=== PATIENT | male | born 1970 | race Caucasian/White ===

== ENCOUNTER 2021-04-23 00:12 | Inpatient (IN) | payer OTHER, SELFPAY ==
[2021-04-23] VITALS (16 sets, daily range): BP systolic 131–149; BP diastolic 79–91; PULSE 97–109; RESP 18–24; TEMP 37.2–37.8; O2SAT 85–99; BMI 35.4
--- NOTE | 2021-04-23 02:58 | PCM.HP.STD ---
HPI - General General Date of Admission: 04/23/21 Date of Service: 04/23/21 Chief Complaint: COVID PNA, Hypoxia, worsening. HPI Narrative The patient is a 50 y/o F w/ PMHx: HTN, HLD, Diabetes mellitus type II, Chronic lumbar back pain, Obesity who presented initially to the [place] ED on 04/22/21 with transfer to [facility] with history of recent travel, in fact had onset of symptoms starting ~ 6 days prior on Friday with attempt with evaluation 3 days prior in [place] with negative chest x-ray at that time and negative Covid testing with ongoing fever, chills, cough, congestion, headache, body aches as well as dyspnea but no specific nausea, vomiting or diarrhea with fever up to 103.3 at home today prompting eventual reevaluation. Patient is unvaccinated against COVID-19. He notes that his girlfriend, her mother and her son live with him but he has been out of town and they have all felt well. Patient upon arrival to [facility] had been reported to require 4 L nasal cannula via EMS. Work-up at the outside ED included: VS: Initial T 38.0, BP 118/76, HR 99, RR 20, 90% on RA-->ambulation 87% on RA-->93% on 2L NC CBC: WBC 3.5, Hgb 12.6, Plts 118 without marked shift BMP: Na 131, K 3.5, BUN/Cr 9/1.0, glucose 148 (no hepatic profile) CXR: R midlung PNA COVID type testing: Positive PCR Trop: < 0.02 EKG: Pending Medications administered: Decadron 6 mg IV x 1, 1L NS. [facility] Medical History (Updated 04/23/21 @ 03:[address] Dena Clancy MD) Chronic back pain Diabetes mellitus, type 2 HLD (hyperlipidemia) HTN (hypertension) Obesity no significant family history (Patient denies any marked maternal or paternal family history including heart disease, diabetes, cancer.) Surgical History (Updated 04/23/21 @ 03:[address] Dena Clancy MD) No history of previous surgery Social History (Updated 04/23/21 @ 03:[address] Dena Clancy MD) household members: other details: He lives with his girlfriend and her mother as well as her son. Smoking Status: Never smoker alcohol intake: never substance use type: does not use ROS ROS Narrative Admission Review of Systems: CONSTITUTIONAL: No weight loss, + fever, chills, weakness or fatigue. HEENT: + Headache, congestion, altered taste/smell. Eyes: No visual loss, blurred vision, double vision or yellow sclerae. Ears, Nose, Throat: No hearing loss, sneezing. SKIN: No rash or itching, lesions, wounds. CARDIOVASCULAR: No chest pain, chest pressure or chest discomfort, palpitations, edema, orthopnea, syncopal events. RESPIRATORY: + shortness of breath, cough, No marked sputum, wheezing, hemoptysis. GASTROINTESTINAL: + anorexia, diarrhea, No nausea, vomiting, abdominal pain, melena, BRBPR. GENITOURINARY: No dysuria, frequency, urgency or retention. NEUROLOGICAL: + headache, No dizziness, syncope, paralysis, ataxia, numbness or tingling in the extremities, focal weakness, change in bowel or bladder control, seizure. MUSCULOSKELETAL: + muscle, back pain, joint pain or stiffness. HEMATOLOGIC: No anemia, bleeding or bruising. LYMPHATICS: No enlarged nodes. No history of splenectomy. PSYCHIATRIC: No history of depression or anxiety. ENDOCRINOLOGIC: No reports of sweating, cold or heat intolerance. No polyuria or polydipsia. ALLERGIES: No history of asthma, hives, eczema or rhinitis. Physical Exam Narrative Physical Examination: General: Awake, alert, oriented x 3 and cooperative, seated upright in the MS bed, fatigued. Skin: Normal color, normal turgor, no icterus, no cyanosis. HEENT: AT/NC, EOMI, PERRLA, moderately dry MM, no carotid bruits or JVD noted. Lungs: Diffusely diminished, greater bases, increased respiratory rate, no rales, ronchi or wheezing. Heart: Regular rate with regular rhythm; no gallop, rub audible. Abdomen: Soft, obese, NTTP, NS, distant hyperactive bowel sounds, no HSM. Extremities: No cyanosis, clubbing, or edema. Neurological: Patient awake, alert, oriented as noted, cognitive function intact; pupils equally reactive to light and accommodation, cranial nerves II-XII grossly normal, moving all 4 extremities, no focal deficits, strength moderately global decrease secondary to acute presentation. Psychiatric: Affect appears fatigued, no acute evidence of depressive or anxiety feelings. Assessment & Plan Assessment/Plan (1) Pneumonia due to COVID-19 virus: (2) Hypoxia: PLAN: The patient is a 50 y/o F w/ PMHx: HTN, HLD, Diabetes mellitus type II, Chronic lumbar back pain, Obesity who presented initially to the [place] ED on 04/22/21 with transfer to [facility] with history of onset of Covid type symptoms 6 days prior, progressively worsening with hypoxia 1. Acute Hypoxia secondary to Acute R sided Pneumonia, Suspect BL secondary to Acute Viral Syndrome, COVID-19: Will admit to the [place] telemetry, maintain on COVID precautions, will maintain on oxygen with wean as tolerated to room air, PRN albuterol, HOB, IS parameters w/ pending sputum cultures, respiratory viral panel and urine antigens, will obtain D-dimer, procalcitonin, CRP, CPK, Ferritin, LDH, trop and BNP, continue supportive care including q 2 hour turning including prone given no prone bed availability and judicious hydration, closely monitor for worsening status for ARDS and multiorgan failure, will initiate and continue IV decadron x 10 doses, given presentation will also initiate IV remdesivir but defer to discretion of Infectious disease. If respiratory status worsens and patient requires airvo or BIPAP transition will initiate barcitinib regimen additionally with ID involvement. 2. Diabetes mellitus type II: Hold oral home regimen, ADA diet, accu checks w/ ISS. We will temporarily hold patient Trulicity. 3. Hypertension: Continue home regimen including hydrochlorothiazide?lisinopril, PRN hydralazine. 4. Hyperlipidemia: Not on regimen, defer to outpatient. 5. Obesity: Weight loss and lifestyle changes encouraged. 6. Chronic lumbar back pain: Encourage frequent positional changes. 7. DVT prophylaxis: SCDs, Lovenox. 8. CODE status: Patient does not have healthcare proxy turning or living will in place. Given acute presentation and unvaccinated state with Covid pneumonia with hypoxia, discussed CODE status at length including difference between FULL code, DNR-CCA and DNR-CC status. Following discussions about the differences in these status, requested Full Code status. Patient amenable to airvo and BIPAP if needed. Advanced Care Planning Face to Face Time: 16 minutes. Charges/Coding Visit Charges Inpatient E&M: 93578 Init Hosp L3 Procedures Hospitalists Procedures: 38344 Advncd Care Plan 30 Min
[2021-04-23] MEDS: 0.9% Normal Saline 1,000 ML 100 ML IV (04:04)
--- NOTE | 2021-04-23 04:33 | PCS.PANDOC ---
PANDEMIC DOCUMENTATION INITIATED: Date: 01/15/2021 Time: 1900 Emergency documentation initiated 04/22/21 @ 0400
--- NOTE | 2021-04-23 04:41 | PCS.PANDOC ---
PANDEMIC DOCUMENTATION INITIATED: Date: 01/15/2021 Time: 190
[2021-04-23] MEDS: Insulin Lispro 100 UNIT/ML INSULN.PEN SC ×3 (06:25→21:42)
[2021-04-23 06:56] LABS: Bedside Glucose 207 mg/dL (70-110)
[2021-04-23 07:04] LABS: Absolute Lymphocyte Count 0.42 X10^3/uL (0.83-4.51); Absolute Neutrophil Count 2.5 X10^3/uL (2.0-7.7); Hematocrit 39.4 % (40-54); Lymphocyte # 0.42 X10^3/ul (0.83-4.51); Lymphocyte % 13.8 % (19-41); Mean Corpuscular Hgb 26.9 pg (27.0-32.0); Mean Corpuscular Volume 81.6 fL (80-94); Monocyte% 3.3 % (0-10); NRBC Flagged by Analyzer 0 % (0-5); Neutrophil # 2.52 X10^3/uL (2.7-7.7); Neutrophil % 82.6 % (47-70); POSITIVE DIFFERENTIAL YES; Platelet Count 130 K/mm3 (150-450); RBC Distribution Width CV 13.1 % (11.6-14.6); Red Blood Count 4.83 M/mm3 (4.6-6.2); White Blood Count 3.1 K/mm3 (4.4-11.0)
[2021-04-23 07:16] LABS: Differential Indicated SCAN CRITERIA MET
[2021-04-23 07:35] LABS: ALB/GLOB Ratio 0.7 RATIO (0.9-2.4); AST(SGOT) 37 U/L (15-37); Alanine Aminotransfer ALT/SGPT 41 U/L (16-61); Albumin, Serum 2.8 g/dL (3.2-5.0); Alkaline Phosphatase 37 U/L (45-117); Anion Gap 7 (5-15); BUN 9 mg/dL (7-18); BUN/Creat Ratio 9.9 RATIO (10-20); Chloride 98 mmol/L (98-107); Creatinine, Serum 0.91 mg/dL (0.70-1.30); EST Glomerular Filtration Rate 93 mL/min (>60); Est Glom Filt Rate - Afr Amer 113 mL/min (>60); Estimated Creatinine Clearance 106.59 ml/min; Globulin 3.8 g/dL (2.2-4.2); Glucose 229 mg/dL (74-106); Protein, Total 6.6 g/dL (6.4-8.2); Sodium Level 131 mmol/L (136-145)
[2021-04-23 07:37] LABS: AST(SGOT) 38 U/L (15-37); Alanine Aminotransfer ALT/SGPT 41 U/L (16-61); Albumin, Serum 2.9 g/dL (3.2-5.0); Alkaline Phosphatase 35 U/L (45-117); Bilirubin, Direct 0.14 mg/dL (0.00-0.30); Ferritin 1206 ng/mL (26-388); Globulin 3.3 g/dL (2.2-4.2); LDH 337 U/L (87-241); Protein, Total 6.2 g/dL (6.4-8.2)
[2021-04-23 07:42] LABS: D-Dimer Quantitative (DVT/PE) 0.72 FEU/ug/m (0.27-0.49)
[2021-04-23] MEDS: 0.9% Saline Lock 10 ML Syringe IV ×2 (08:41→11:44)
[2021-04-23] MEDS: Enoxaparin 30 MG/0.3 ML Syringe SC ×2 (08:41→21:43)
[2021-04-23 09:04] LABS: BNP,B-Type NATRIURETIC PEPTIDE 35.8 pg/mL (0-100)
[2021-04-23 10:04] LABS: Procalcitonin 0.16 ng/mL (0.00-0.09)
--- NOTE | 2021-04-23 10:48 | CASEMGMT ---
ULICES RODRIGES Assessment: Face to Face with pt for initial transition planning/care coordination assessment. ULICES RODRIGES introduced self and role at [facility], pt voices understanding and consents to assessment. Pt is A/O x4 and answers all questions appropriately at this time. Pt sitting up in chair with O2 on in no distress. Care providers, pharmacy, and demographics verified/updated. Admitting Dx: COVID PNA, hypoxia PCP:[place] Specialists: Pt denies having any specialists. Preferred Pharmacy: [facility] Insurance: [employer] Prescription Benefit: yes LW/HPOA: Pt denies having a LW/DPOA and denies need for info regarding AD. LNOK: Selin Vo, girlfriend Living Arrangements: Pt lives with his girlfriend in a single story house with 3 steps to enter. Pt reports he was I in ADL's and denies concerns at home. Transportation: Pt drives self and denies concerns with transportation. DME/HHC/SNF: Pt has a pulse ox at home. Denies hx of HHC or SNF stays. Pt was tested for COVID at [facility]. Pt is able to quarantine from his girlfriend using separate bedrooms and bathrooms. She is not COVID positive. Pt girlfriend will be able to provide him with groceries and supplies. Provided pt with a list of local in network DME companies should he need O2 upon dc, pt denies having a preference. Pt states no concerns with going home at time of dc. Pt states no further concerns/needs. CM to follow. Advised pt to ask CM if any further question/concerns/needs arise, voices understanding. Pt Goal: Home Plan: Home
--- NOTE | 2021-04-23 11:13 | PN_ITS ---
Assessment & Plan Assessment/Plan (1) Pneumonia due to COVID-19 virus: (2) Hypoxia: PLAN: 1. Acute hypoxic respiratory failure secondary to COVID-19 pneumonia ?We'll continue to monitor oxygen status, he is currently up to 8 L nasal cannula. If he does worsen we'll need to consult ID for baricitinib ?Continue with remdesivir and Decadron we'll transition this to p.o. ?Discontinue IV fluids and may need to transition to Lasix if respiratory status significantly worsens and he has physical exam findings consistent with fluid overload ?Outpatient evaluation at outside hospitals initially were negative for any lung findings. ?D-dimer is elevated at 0.72, renal function is stable therefore will obtain a CTA of the chest 2. DM2 ?Hold home regimen ?Continue with sliding scale insulin ?Accu-Cheks AC at bedtime, will make adjustments as necessary 3. HTN/HLD/obesity ?Blood pressure is stable, will continue to monitor ?Continue with his home blood pressure medications and monitor renal function ?He is not on any medications for his cholesterol but should likely have follow- up as an outpatient ?BMI of 35.4, discussed lifestyle modifications DVT: Lovenox
[2021-04-23] MEDS: guaiFENesin 10 ML UDC (200MG/10ML) 20 ML PO (11:45)
--- NOTE | 2021-04-23 12:35 | CT_ITS ---
STUDY: CTA CHEST REASON FOR EXAM: Male, 50 years old. COVID with elevated DDimer RADIATION DOSAGE (If Supplied By Facility): CTDIvol = ( 24.54 ) mGy, DLP = ( 897.84 ) mGycm TECHNIQUE: The examination was performed with the intravenous administration of IV 100mL Isovue-370. Post-processing of the angiographic images was performed, with multiplanar reformation and 3D reconstruction. Individualized dose optimization techniques were used for this CT. COMPARISON: None. FINDINGS: Normal enhancement of the main pulmonary artery and right and left pulmonary arteries. Normal enhancement of the bilateral peripheral pulmonary arteries. There is no demonstrated pulmonary embolism. Normal thoracic aorta and visualized great vessels. There is no demonstrated aortic dissection. Normal heart and pericardium. Normal mediastinum. Normal hilar regions. Normal visualized trachea and bronchi. The lungs are well expanded. Multifocal airspace disease and groundglass opacities with features commonly reported with COVID pneumonia. Normal pleura. Normal chest wall structures. There are degenerative changes of thoracic spine. Hepatic steatosis. CT/CTA Chest W/WO Contrast IMPRESSION: 1. No central or segmental pulmonary embolism. 2. Multifocal infiltrates with features commonly reported with COVID pneumonia. Electronically Signed: Ben Luna MD ([place]) at 13:23 EST , Service support ,
[2021-04-23 12:55] LABS: Bedside Glucose 184 mg/dL (70-110)
[2021-04-23 16:55] LABS: Bedside Glucose 127 mg/dL (70-110)
[2021-04-23 22:01] LABS: Bedside Glucose 160 mg/dL (70-110)
[2021-04-24] VITALS (12 sets, daily range): BP systolic 130–153; BP diastolic 80–88; PULSE 90–108; RESP 18–20; TEMP 36.7–37.8; O2SAT 88–94
--- NOTE | 2021-04-24 05:28 | NURSING ---
With activity pt pulse ox drops to 86% with 9l nc. He does recover with some time
[2021-04-24 06:13] LABS: Absolute Lymphocyte Count 0.82 X10^3/uL (0.83-4.51); Absolute Neutrophil Count 4.6 X10^3/uL (2.0-7.7); Basophil# 0.01 X10^3/uL; Basophil% 0.2 % (0-1); Hematocrit 40.9 % (40-54); Hemoglobin 13.7 g/dL (13.0-16.5); Lymphocyte # 0.82 X10^3/ul (0.83-4.51); Lymphocyte % 14.2 % (19-41); Mean Corp Hgb Conc 33.5 g/dL (32-36); Mean Corpuscular Hgb 27.3 pg (27.0-32.0); Mean Corpuscular Volume 81.6 fL (80-94); Mean Platelet Vol. 10.6 fl (6.2-12.0); Monocyte# 0.33 X10^3/uL; Monocyte% 5.7 % (0-10); NRBC Flagged by Analyzer 0 % (0-5); Neutrophil % 79.6 % (47-70); Platelet Count 170 K/mm3 (150-450); RBC Distribution Width CV 13.4 % (11.6-14.6); Red Blood Count 5.01 M/mm3 (4.6-6.2); White Blood Count 5.8 K/mm3 (4.4-11.0)
[2021-04-24] MEDS: Insulin Lispro 100 UNIT/ML INSULN.PEN SC ×4 (06:31→21:25)
[2021-04-24 06:49] LABS: ALB/GLOB Ratio 0.7 RATIO (0.9-2.4); AST(SGOT) 49 U/L (15-37); Alanine Aminotransfer ALT/SGPT 49 U/L (16-61); Alkaline Phosphatase 41 U/L (45-117); Anion Gap 7 (5-15); BUN 11 mg/dL (7-18); BUN/Creat Ratio 12.4 RATIO (10-20); Calcium,Total 8.4 mg/dL (8.5-10.1); Chloride 94 mmol/L (98-107); Creatinine, Serum 0.88 mg/dL (0.70-1.30); EST Glomerular Filtration Rate 97 mL/min (>60); Est Glom Filt Rate - Afr Amer 117 mL/min (>60); Estimated Creatinine Clearance 110.23 ml/min; Globulin 4.3 g/dL (2.2-4.2); Glucose 173 mg/dL (74-106); Potassium 4.1 mmol/L (3.5-5.1); Protein, Total 7.3 g/dL (6.4-8.2); Sodium Level 130 mmol/L (136-145)
[2021-04-24] MEDS: dexAMETHasone 4 MG Tablet 6 MG PO (10:31)
[2021-04-24] MEDS: Enoxaparin 30 MG/0.3 ML Syringe SC ×2 (10:31→21:32)
[2021-04-24 11:51] LABS: Bedside Glucose 176 mg/dL (70-110)
[2021-04-24] MEDS: Calcium Carbonate 500 MG Tablet 1000 MG PO ×2 (12:34→21:31)
[2021-04-24] MEDS: Acetaminophen 325 MG Tablet 650 MG PO (12:34)
--- NOTE | 2021-04-24 12:49 | PN.HOSP_ITS ---
Subjective Subjective Doing well, no issues overnight. Maintaining oxygen saturations on 8 to 9 L nasal cannula. Continue to encourage incentive spirometry and Pep therapy. Objective Data Objective Data Vital Signs: Vital Signs Temp Pulse Resp BP Pulse Ox 100.1 F H 95 20 H 130/83 H 92 04/24/21 12:38 04/24/21 12:38 04/24/21 12:38 04/24/21 12:38 04/24/21 12:38 Oxygen Flow Rate (L/min) [At 8 REST with Oxygen] Oxygen Flow Rate (L/min) [ 8 AMBULATING with Oxygen #2] Oxygen Flow Rate (L/min) [ 6 AMBULATING with Oxygen #1] Oxygen Flow Rate (L/min) 9 Oxygen Delivery Method Nasal Cannula Weight: 258 lb 2.581 oz Body Mass Index (BMI) 35.4 Intake & Output: Intake and Output for Last 24 Hours 04/23/21 04/24/21 04/25/21 03:59 03:59 03:59 Intake Total 523.34 / 523.34 440 / 440 Output Total 975 / 975 550 / 550 Balance -451.66 / -451.66 -110 / -110 Lab / Micro Data Result Diagrams: 04/24/21 05:40 04/24/21 05:40 Labs: Laboratory Results - last 24 hr 04/23/21 11:34: POC Glucose 184 H 04/23/21 16:32: POC Glucose 127 H 04/23/21 21:40: POC Glucose 160 H 04/24/21 05:40: WBC 5.8, RBC 5.01, Hgb 13.7, Hct 40.9, MCV 81.6, MCH 27.3, MCHC 33.5, RDW Std Deviation 40.0, RDW Coeff of Julián 13.4, Plt Count 170, MPV 10.6, Immature Gran % (Auto) 0.300, Neut % (Auto) 79.6 H, Lymph % (Auto) 14.2 L, [place] % (Auto) 5.7, Eos % (Auto) 0.0, Baso % (Auto) 0.2, Absolute Neuts (auto) 4.6, Absolute Lymphs (auto) 0.82 L, Nucleated RBC % 0 04/24/21 05:40: Sodium 130 L, Potassium 4.1, Chloride 94 L, Carbon Dioxide 29.0, Anion Gap 7, BUN 11, Creatinine 0.88, Estim Creat Clear Calc 110.23, Est GFR (MDRD) Af Amer 117, Est GFR (MDRD) Non-Af 97, BUN/Creatinine Ratio 12.4, Glucose 173 H, Calcium 8.4 L, Total Bilirubin 0.40, AST 49 H, ALT 49, Alkaline Phosphatase 41 L, Total Protein 7.3, Albumin 3.0 L, Globulin 4.3 H, Albumin/Globulin Ratio 0.7 L 04/24/21 06:30: POC Glucose 176 H Micro: Microbiology 04/23/21 06:20 Urine, Random Legionella Antigen - Final 04/23/21 06:20 Urine, Random Streptococcus pneumoniae Antigen (M - Final 04/23/21 03:33 Mucosa - Nasopharyngeal Respiratory Panel (PCR) - Final Radiography Diagnostic Testing: Radiology Impression Chest CTA 04/23/21 12:35 IMPRESSION: 1. No central or segmental pulmonary embolism. 2. Multifocal infiltrates with features commonly reported with COVID pneumonia. Electronically Signed: Ben Luna MD ([place]) at 13:23 EST , Service support , Physical Exam Const alert, oriented x3 and no apparent distress General Appearance: cooperative HEENT normocephalic and moist oral mucous membranes Eyes PERRL, EOMs intact bilaterally and conjunctivae normal Neck supple and no JVD Resp normal respiratory effort, no retractions and no use of accessory muscles Auscultation: diminished lung sounds; Negative for crackles, rales, rhonchi or wheezes Cardio regular rate, regular rhythm, S1 normal heart sound, S2 normal heart sound and no murmurs GI soft to palpation, non-tender and non-distended; Negative for hepatosplenomegaly Extremity no clubbing, cyanosis or edema Skin no rashes or lesions noted Neuro no focal motor deficits and no sensory deficits noted Psych affect normal Appearance: appropriate Assessment & Plan Assessment/Plan (1) Pneumonia due to COVID-19 virus: (2) Hypoxia: PLAN: 1. Acute hypoxic respiratory failure secondary to COVID-19 pneumonia ?We'll continue to monitor oxygen status, he is currently up to 8-9 L nasal cannula. If he does worsen we'll need to consult ID for baricitinib ?Continue with remdesivir and Decadron we'll transition this to p.o. ?Discontinue IV fluids and may need to transition to Lasix if respiratory status significantly worsens and he has physical exam findings consistent with fluid overload ?Outpatient evaluation at outside hospitals initially were negative for any lung findings. ?D-dimer was elevated however CTA of the chest is negative for PE 2. DM2 ?Hold home regimen ?Continue with sliding scale insulin ?Accu-Cheks AC at bedtime, will make adjustments as necessary 3. HTN/HLD/obesity ?Blood pressure is stable, will continue to monitor ?Continue with his home blood pressure medications and monitor renal function ?He is not on any medications for his cholesterol but should likely have follow- up as an outpatient ?BMI of 35.4, discussed lifestyle modifications DVT: Lovenox Charges/Coding Visit Charges Inpatient E&M: 20789 Subs Hosp L2
[2021-04-24 12:51] LABS: Bedside Glucose 202 mg/dL (70-110)
[2021-04-24 18:31] LABS: Bedside Glucose 257 mg/dL (70-110)
[2021-04-24] MEDS: Mag Hydrox/Al Hydrox/Simeth 30 ML UDC PO (21:31)
[2021-04-25] VITALS (15 sets, daily range): BP systolic 124–144; BP diastolic 78–82; PULSE 84–100; RESP 18–24; TEMP 36.9–37.2; O2SAT 90–95
[2021-04-25] MEDS: guaiFENesin 10 ML UDC (200MG/10ML) 20 ML PO (00:18)
[2021-04-25] MEDS: Albuterol 2.5 MG/3 ML VIAL.NEB. INHALATION (00:41)
[2021-04-25 06:21] LABS: Bedside Glucose 243 mg/dL (70-110)
[2021-04-25] MEDS: Insulin Lispro 100 UNIT/ML INSULN.PEN SC ×4 (06:33→22:28)
[2021-04-25 06:46] LABS: Bedside Glucose 185 mg/dL (70-110)
[2021-04-25 07:24] LABS: Absolute Lymphocyte Count 0.74 X10^3/uL (0.83-4.51); Absolute Neutrophil Count 5.1 X10^3/uL (2.0-7.7); Hematocrit 41.2 % (40-54); Hemoglobin 13.8 g/dL (13.0-16.5); Lymphocyte # 0.74 X10^3/ul (0.83-4.51); Lymphocyte % 11.5 % (19-41); Mean Corp Hgb Conc 33.5 g/dL (32-36); Mean Corpuscular Hgb 27.4 pg (27.0-32.0); Mean Corpuscular Volume 81.9 fL (80-94); Mean Platelet Vol. 10.3 fl (6.2-12.0); Monocyte# 0.53 X10^3/uL; Monocyte% 8.3 % (0-10); NRBC Flagged by Analyzer 0 % (0-5); Neutrophil # 5.14 X10^3/uL (2.7-7.7); Platelet Count 200 K/mm3 (150-450); RBC Distribution Width CV 13.3 % (11.6-14.6); RBC Distribution Width SD 39.9 fl (35.1-43.9); Red Blood Count 5.03 M/mm3 (4.6-6.2); White Blood Count 6.4 K/mm3 (4.4-11.0)
[2021-04-25 08:01] LABS: ALB/GLOB Ratio 0.7 RATIO (0.9-2.4); AST(SGOT) 40 U/L (15-37); Alanine Aminotransfer ALT/SGPT 44 U/L (16-61); Albumin, Serum 2.9 g/dL (3.2-5.0); Alkaline Phosphatase 41 U/L (45-117); Anion Gap 7 (5-15); BUN 12 mg/dL (7-18); BUN/Creat Ratio 14.4 RATIO (10-20); Calcium,Total 8.7 mg/dL (8.5-10.1); Chloride 95 mmol/L (98-107); Creatinine, Serum 0.83 mg/dL (0.70-1.30); EST Glomerular Filtration Rate 103 mL/min (>60); Est Glom Filt Rate - Afr Amer 125 mL/min (>60); Estimated Creatinine Clearance 116.87 ml/min; Globulin 4.4 g/dL (2.2-4.2); Glucose 186 mg/dL (74-106); Potassium 4.3 mmol/L (3.5-5.1); Protein, Total 7.3 g/dL (6.4-8.2); Sodium Level 131 mmol/L (136-145)
[2021-04-25] MEDS: Lisinopril 20 MG Tablet PO (09:36)
[2021-04-25] MEDS: hydroCHLOROthiazide 12.5mg 12.5 MG PO (09:36)
[2021-04-25] MEDS: dexAMETHasone 4 MG Tablet 6 MG PO (09:36)
[2021-04-25] MEDS: Enoxaparin 30 MG/0.3 ML Syringe SC ×2 (09:36→22:23)
[2021-04-25 10:17] LABS: Pathologist Review Reviewed
[2021-04-25 11:56] LABS: Bedside Glucose 216 mg/dL (70-110)
--- NOTE | 2021-04-25 13:29 | PN.HOSP_ITS ---
Subjective Subjective Feels well but is requiring more oxygen today. No issues overnight Objective Data Objective Data Vital Signs: Vital Signs Temp Pulse Resp BP Pulse Ox 98.7 F 96 20 H 139/82 H 94 04/25/21 09:38 04/25/21 09:38 04/25/21 09:38 04/25/21 09:38 04/25/21 09:38 Oxygen Flow Rate (L/min) [At 8 REST with Oxygen] Oxygen Flow Rate (L/min) [ 8 AMBULATING with Oxygen #2] Oxygen Flow Rate (L/min) [ 6 AMBULATING with Oxygen #1] Oxygen Flow Rate (L/min) 10 Oxygen Delivery Method Non-Rebreather Weight: 258 lb 2.581 oz Body Mass Index (BMI) 35.4 Intake & Output: Intake and Output for Last 24 Hours 04/24/21 04/25/21 04/26/21 03:59 03:59 03:59 Intake Total 523.34 / 523.34 1130 / 1130 Output Total 975 / 975 775 / 775 550 / 550 Balance -451.66 / -451.66 355 / 355 -550 / -550 Lab / Micro Data Result Diagrams: 04/25/21 06:51 04/25/21 06:51 Labs: Laboratory Results - last 24 hr 04/23/21 06:35: Diff Path Review Reviewed 04/24/21 17:59: POC Glucose 257 H 04/24/21 21:23: POC Glucose 243 H 04/25/21 06:26: POC Glucose 185 H 04/25/21 06:51: WBC 6.4, RBC 5.03, Hgb 13.8, Hct 41.2, MCV 81.9, MCH 27.4, MCHC 33.5, RDW Std Deviation 39.9, RDW Coeff of Julián 13.3, Plt Count 200, MPV 10.3, Immature Gran % (Auto) 0.200, Neut % (Auto) 80.0 H, Lymph % (Auto) 11.5 L, [place] % (Auto) 8.3, Eos % (Auto) 0.0, Baso % (Auto) 0.0, Absolute Neuts (auto) 5.1, Absolute Lymphs (auto) 0.74 L, Nucleated RBC % 0 04/25/21 06:51: Sodium 131 L, Potassium 4.3, Chloride 95 L, Carbon Dioxide 29.0, Anion Gap 7, BUN 12, Creatinine 0.83, Estim Creat Clear Calc 116.87, Est GFR (MDRD) Af Amer 125, Est GFR (MDRD) Non-Af 103, BUN/Creatinine Ratio 14.4, Glucose 186 H, Calcium 8.7, Total Bilirubin 0.40, AST 40 H, ALT 44, Alkaline Phosphatase 41 L, Total Protein 7.3, Albumin 2.9 L, Globulin 4.4 H, Albumin/Globulin Ratio 0.7 L 04/25/21 11:44: POC Glucose 216 H Micro: Microbiology 04/23/21 06:20 Urine, Random Legionella Antigen - Final 04/23/21 06:20 Urine, Random Streptococcus pneumoniae Antigen (M - Final 04/23/21 03:33 Mucosa - Nasopharyngeal Respiratory Panel (PCR) - Final Physical Exam Const alert, oriented x3 and no apparent distress General Appearance: cooperative HEENT normocephalic and moist oral mucous membranes Eyes PERRL, EOMs intact bilaterally and conjunctivae normal Neck supple and no JVD Resp normal respiratory effort, no retractions and no use of accessory muscles Auscultation: diminished lung sounds; Negative for crackles, rales, rhonchi or wheezes Cardio regular rate, regular rhythm, S1 normal heart sound, S2 normal heart sound and no murmurs GI soft to palpation, non-tender and non-distended; Negative for hepatosplenomegaly Extremity no clubbing, cyanosis or edema Skin no rashes or lesions noted Neuro no focal motor deficits and no sensory deficits noted Psych affect normal Appearance: appropriate Assessment & Plan Assessment/Plan (1) Pneumonia due to COVID-19 virus: (2) Hypoxia: PLAN: 1. Acute hypoxic respiratory failure secondary to COVID-19 pneumonia ?Continue with remdesivir and Decadron we'll transition this to p.o. ?Discontinue IV fluids and may need to transition to Lasix if respiratory status significantly worsens and he has physical exam findings consistent with fluid overload ?Outpatient evaluation at outside hospitals initially were negative for any lung findings. ?D-dimer was elevated however CTA of the chest is negative for PE ?Given the increased oxygen requirement will consult pulmonology as well as infectious disease for consideration of baricitinib 2. DM2 ?Hold home regimen ?Continue with sliding scale insulin ?Accu-Cheks AC at bedtime, will make adjustments as necessary 3. HTN/HLD/obesity ?Blood pressure is stable, will continue to monitor ?Continue with his home blood pressure medications and monitor renal function ?He is not on any medications for his cholesterol but should likely have follow- up as an outpatient ?BMI of 35.4, discussed lifestyle modifications DVT: Lovenox Charges/Coding Visit Charges Inpatient E&M: 62443 Subs Hosp L2
--- NOTE | 2021-04-25 15:42 | PCM.CONS.GEN ---
Assessment & Plan Assessment/Plan (1) Pneumonia due to COVID-19 virus: PLAN: Sx started 04/16/21. Unvaccinated. Isolate for 20 days until 05/06/21. Recommend vaccine once out of iso and out of hospital. On dex, remdesivir. With worsening O2, reviewed EUA and risks/benefits of baricitinib, we agree to start. Will follow, thank you (2) Hypoxia: HPI Consult Data Date of Consult: 04/25/21 HPI Narrative HPI Narrative: ALVARADO AMIN, is a 50 M who presented with sx starting 04/16/21. Unvaccinated. People at work were sick. C/o change in taste, cough, diarrhea, sore throat, aches, fatigue. Fiancee with no symptoms, test result pending. Admitted here, started on dex, remdesivir. Now worsening O2. Full ROS performed and neg except as noted above. [facility] Medical History Chronic back pain Diabetes mellitus, type 2 HLD (hyperlipidemia) HTN (hypertension) Obesity Home Medications dulaglutide [Trulicity] 0.75 mg SUBCUT KILLIAN 04/23/21 [History Last Taken 04/22/21] lisinopril 10 mg PO DAILY 04/23/21 [History Last Taken 04/21/21] lisinopril-hydrochlorothiazide 1 tab PO DAILY 04/23/21 [History Last Taken 04/21/21] metformin 500 mg PO DAILY 04/23/21 [History Last Taken 04/21/21] Allergy/AdvReac Type Severity Reaction Status Date / Time No Known Allergies Allergy Verified 04/23/21 03:55 Family History no significant family his Surgical History No history of previous surgery Social History (Updated 04/23/21 @ 03:[address] Dena Clancy MD) household members: other details: He lives with his girlfriend and her mother as well as her son. Smoking Status: Never smoker alcohol intake: never substance use type: does not use Physical Exam Const alert and oriented x3 Constitutional Narrative: ill appearing General Appearance: cooperative Exam Limitations: no limitations HEENT normocephalic and head/scalp atraumatic Eyes PERRL and EOMs intact bilaterally Neck supple and No nodes Resp Auscultation: diminished lung sounds Cardio regular rate and regular rhythm GI normal to inspection, nondistended, normoactive bowel sounds Extremity no clubbing, cyanosis or edema Skin no rashes or lesions noted Neuro CN's II-XII intact bilaterally Lab / Micro Data Result Diagrams: 04/25/21 06:51 04/25/21 06:51 Labs: Laboratory Results - last 24 hr 04/23/21 06:35: Diff Path Review Reviewed 04/24/21 17:59: POC Glucose 257 H 04/24/21 21:23: POC Glucose 243 H 04/25/21 06:26: POC Glucose 185 H 04/25/21 06:51: WBC 6.4, RBC 5.03, Hgb 13.8, Hct 41.2, MCV 81.9, MCH 27.4, MCHC 33.5, RDW Std Deviation 39.9, RDW Coeff of Julián 13.3, Plt Count 200, MPV 10.3, Immature Gran % (Auto) 0.200, Neut % (Auto) 80.0 H, Lymph % (Auto) 11.5 L, [place] % (Auto) 8.3, Eos % (Auto) 0.0, Baso % (Auto) 0.0, Absolute Neuts (auto) 5.1, Absolute Lymphs (auto) 0.74 L, Nucleated RBC % 0 04/25/21 06:51: Sodium 131 L, Potassium 4.3, Chloride 95 L, Carbon Dioxide 29.0, Anion Gap 7, BUN 12, Creatinine 0.83, Estim Creat Clear Calc 116.87, Est GFR (MDRD) Af Amer 125, Est GFR (MDRD) Non-Af 103, BUN/Creatinine Ratio 14.4, Glucose 186 H, Calcium 8.7, Total Bilirubin 0.40, AST 40 H, ALT 44, Alkaline Phosphatase 41 L, Total Protein 7.3, Albumin 2.9 L, Globulin 4.4 H, Albumin/Globulin Ratio 0.7 L 04/25/21 11:44: POC Glucose 216 H
--- NOTE | 2021-04-25 16:12 | EX.PCM.CONCC ---
Assessment & Plan Assessment/Plan (1) Pneumonia due to COVID-19 virus: (2) Hypoxia: PLAN: RECOMMENDATIONS: 1. Continue Decadron (05/03/21), Remdesivir (04/27/2021) and baricitinib (05/08/2021) 2. Diuretics to achieve euvolemia 3. Wean supplemental oxygen as tolerated 4. Add vitamin C, zinc and mucolytic 5. Encourage incentive spirometer, Acapella and prone positioning 6. Bronchodilators as needed are likely sufficient given lack of obstructive lung disease 7. May benefit from outpatient work-up for obstructive sleep apnea IMPRESSIONS: 1. Acute hypoxic respiratory failure secondary to COVID-19 pneumonia Patient with worsening oxygenation issues. Patient was placed on Remdesivir and Decadron. Baricitinib was added by infectious disease today. Low clinical suspicion for PE at this time given negative CTA. Will add vitamin C, zinc and mucolytic. Incentive spirometer, Acapella and prone positioning can help with oxygenation. Wean oxygen as tolerated. Diuretics can be used as necessary to achieve euvolemia. Patient does have risk factors for obstructive sleep apnea, so cannot exclude the need for BiPAP or positive pressure overnight. 2. Diabetes mellitus Patient currently on Decadron therapy. Continue to monitor blood sugars. Cannot exclude the need for basal insulin requirements. Continue with sliding scale insulin. 3. Unvaccinated status/hypertension/hyperlipidemia/obesity Complicates care, management, recovery and prognosis. Okay to continue with baseline medications. May need to hold TJ inhibitor if patient develops renal dysfunction. Patient would benefit from weight loss. Did confirm patient is a full code. HPI Consult Data Date of Consult: 04/25/21 HPI Narrative HPI Narrative: ALVARADO AMIN is a 50 M, with past medical history listed below, who presents to [facility] as a transfer secondary to Covid pneumonia. Patient reportedly had symptoms started 6 days prior to arrival and was evaluated in [place] secondary to URI symptoms. Covid testing at that time was negative despite fever, chills and body aches. Today, patient had a fever to 103.3 ?F and felt that he needed to come in for evaluation. Patient is not vaccinated against COVID-19. At the outside ER, patient was febrile at 38 ?C and saturating 90% on room air. Patient did desaturate with ambulation to 87%. Laboratory work-up showed a white blood cell count of 3.5, normal renal function and a glucose of 148. Chest x-ray showed right greater than left infiltrates and Covid testing was positive. Patient was given 1 L of saline and Decadron and transferred to [facility]. Since being admitted to the hospital, patient has had increased oxygen requirements. Today, patient was placed on Airvo, so a pulmonary consult was obtained. Patient is reporting significant aches and pains, but overall feels that his respiratory status is improved since the addition of Airvo. Patient does report a cough that is relatively nonproductive. Patient does not report any pulmonary history in the past. 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 Patient denies requiring supplemental oxygen or inhalers in the past. Patient has never seen a recruiting manager or had pulmonary function testing. Patient denies any history of TB or asbestos. Patient is unaware of any cardiac issues. Patient describes his diabetes as well controlled. Review of systems otherwise negative from a constitutional, HEENT, respiratory, cardiovascular, GI, genitourinary, musculoskeletal, skin, neurologic, psychiatric and hematologic system unless stated above. [facility] Medical History Chronic back pain Diabetes mellitus, type 2 HLD (hyperlipidemia) HTN (hypertension) Obesity Home Medications dulaglutide [Trulicity] 0.75 mg SUBCUT KILLIAN 04/23/21 [History Last Taken 04/22/21] lisinopril 10 mg PO DAILY 04/23/21 [History Last Taken 04/21/21] lisinopril-hydrochlorothiazide 1 tab PO DAILY 04/23/21 [History Last Taken 04/21/21] metformin 500 mg PO DAILY 04/23/21 [History Last Taken 04/21/21] Allergy/AdvReac Type Severity Reaction Status Date / Time No Known Allergies Allergy Verified 04/23/21 03:55 Family History no significant family his Surgical History No history of previous surgery Social History household members: other details: He lives with his girlfriend and her mother as well as her son. Smoking Status: Never smoker alcohol intake: never substance use type: does not use ROS ROS Narrative See HPI Physical Exam Const alert, oriented x3 and no apparent distress Constitutional Narrative: On Airvo General Appearance: cooperative Nutritional Appearance: obese HEENT normocephalic and moist oral mucous membranes Eyes PERRL, EOMs intact bilaterally and conjunctivae normal Neck supple and no JVD Chest inspection of chest normal Chest: symmetrical chest wall rise; Negative for crepitus Resp normal respiratory effort, no retractions and no use of accessory muscles Auscultation: diminished lung sounds; Negative for crackles, rales, rhonchi or wheezes Cardio regular rate, regular rhythm, S1 normal heart sound, S2 normal heart sound and no murmurs GI soft to palpation, non-tender and non-distended; Negative for hepatosplenomegaly Extremity no clubbing, cyanosis or edema Skin no rashes or lesions noted Neuro no focal motor deficits and no sensory deficits noted Psych affect normal Appearance: appropriate Lab / Micro Data Result Diagrams: 04/25/21 06:51 04/25/21 06:51 Labs: Laboratory Results - last 24 hr 04/23/21 06:35: Diff Path Review Reviewed 04/24/21 17:59: POC Glucose 257 H 04/24/21 21:23: POC Glucose 243 H 04/25/21 06:26: POC Glucose 185 H 04/25/21 06:51: WBC 6.4, RBC 5.03, Hgb 13.8, Hct 41.2, MCV 81.9, MCH 27.4, MCHC 33.5, RDW Std Deviation 39.9, RDW Coeff of Julián 13.3, Plt Count 200, MPV 10.3, Immature Gran % (Auto) 0.200, Neut % (Auto) 80.0 H, Lymph % (Auto) 11.5 L, [place] % (Auto) 8.3, Eos % (Auto) 0.0, Baso % (Auto) 0.0, Absolute Neuts (auto) 5.1, Absolute Lymphs (auto) 0.74 L, Nucleated RBC % 0 04/25/21 06:51: Sodium 131 L, Potassium 4.3, Chloride 95 L, Carbon Dioxide 29.0, Anion Gap 7, BUN 12, Creatinine 0.83, Estim Creat Clear Calc 116.87, Est GFR (MDRD) Af Amer 125, Est GFR (MDRD) Non-Af 103, BUN/Creatinine Ratio 14.4, Glucose 186 H, Calcium 8.7, Total Bilirubin 0.40, AST 40 H, ALT 44, Alkaline Phosphatase 41 L, Total Protein 7.3, Albumin 2.9 L, Globulin 4.4 H, Albumin/Globulin Ratio 0.7 L 04/25/21 11:44: POC Glucose 216 H Charges/Coding Visit Charges Inpatient E&M: 87830 Init Hosp L3
[2021-04-25 17:16] LABS: Bedside Glucose 251 mg/dL (70-110)
[2021-04-25] MEDS: Ascorbic Acid 500 MG Tablet 1000 MG PO (22:22)
[2021-04-25] MEDS: guaiFENesin 1,200 MG Tablet 1200 MG PO (22:23)
[2021-04-25 22:40] LABS: Bedside Glucose 221 mg/dL (70-110)
[2021-04-26] VITALS (16 sets, daily range): BP systolic 118–146; BP diastolic 73–84; PULSE 79–103; RESP 18–20; TEMP 37–37.8; O2SAT 90–95
--- NOTE | 2021-04-26 00:01 | CPS ---
Pulse ox noted to be dropping with sleep, will increase set flow to 50L for this reason
[2021-04-26] MEDS: Insulin Lispro 100 UNIT/ML INSULN.PEN SC ×4 (06:27→21:24)
[2021-04-26 06:46] LABS: Bedside Glucose 156 mg/dL (70-110)
--- NOTE | 2021-04-26 07:26 | PN.CC_ITS ---
Assessment & Plan Assessment/Plan (1) Pneumonia due to COVID-19 virus: (2) Hypoxia: PLAN: RECOMMENDATIONS: 1. Continue Decadron (05/03/21), Remdesivir (04/27/2021) and baricitinib (05/08/2021). 2. Diuretics, as needed, to maintain euvolemic state. 3. Awake prone positioning was encouraged. 4. Continue to wean FiO2 to maintain oxygen saturations at or above 90%. 5. Encourage incentive spirometer use and mobilize patient as tolerated. IMPRESSIONS: 1. Acute hypoxic respiratory failure secondary to COVID-19 pneumonia Continue current supportive measures including remdesivir, Decadron, baricitinib and prophylactic Lovenox. Continue to wean FiO2 to maintain oxygen saturations at or above 90%. CTA showed no evidence for PE. Awake prone positioning was encouraged. Encourage incentive spirometer use and mobilize patient as tolera kiah. Diuretics can be utilized as needed to maintain euvolemic state. 2. Diabetes mellitus Continue sliding scale insulin coverage. 3. Unvaccinated status/hypertension/hyperlipidemia/obesity Complicates care, management, recovery and prognosis. Okay to continue with baseline medications. This note was generated with e-channel dictation software. It may contain incorrect words, spelling, and punctuation that were not noted in checking the note before signing. Subjective Subjective The patient was seen and examined at the bedside this morning. Events from the last 24 hours have been reviewed. The patient is currently afebrile, hemodynamically stable and maintaining appropriate oxygen saturations on Airvo heated high flow with an FiO2 requirement of 80%. The patient is documented to be overall net even for the hospitalization. The patient remains on remdesivir, Lovenox, Decadron and baricitinib. Objective Data Objective Data The patient's most recent lab work, culture data and imaging studies have all been personally reviewed. Respiratory viral panel was negative. Strep and urine Legionella antigens were negative. Vital Signs: Vital Signs Temp Pulse Resp BP Pulse Ox 98.9 F 87 20 H 118/84 H 94 04/26/21 06:19 04/26/21 06:19 04/26/21 06:19 04/26/21 06:19 04/26/21 06:19 Oxygen Flow Rate (L/min) [At 8 REST with Oxygen] Oxygen Flow Rate (L/min) [ 8 AMBULATING with Oxygen #2] Oxygen Flow Rate (L/min) [ 6 AMBULATING with Oxygen #1] Oxygen Flow Rate (L/min) 40 Oxygen Delivery Method Airvo Weight: 117.1 kg Body Mass Index (BMI) 35.4 Intake & Output: Intake and Output for Last 24 Hours 04/24/21 04/25/21 04/26/21 23:59 23:59 23:59 Intake Total 880 / 880 1150 / 1150 950 / 950 Output Total 775 / 775 1200 / 1575 375 / 375 Balance 105 / 105 -50 / -425 575 / 575 Lab / Micro Data Attestation: I reviewed the patient's lab results. Result Diagrams: 04/26/21 07:20 04/26/21 07:20 Labs: Laboratory Results - last 24 hr 04/23/21 06:35: Diff Path Review Reviewed 04/25/21 06:51: Sodium 131 L, Potassium 4.3, Chloride 95 L, Carbon Dioxide 29.0, Anion Gap 7, BUN 12, Creatinine 0.83, Estim Creat Clear Calc 116.87, Est GFR (MDRD) Af Amer 125, Est GFR (MDRD) Non-Af 103, BUN/Creatinine Ratio 14.4, Glucose 186 H, Calcium 8.7, Total Bilirubin 0.40, AST 40 H, ALT 44, Alkaline Phosphatase 41 L, Total Protein 7.3, Albumin 2.9 L, Globulin 4.4 H, Albumin/Globulin Ratio 0.7 L 04/25/21 11:44: POC Glucose 216 H 04/25/21 17:01: POC Glucose 251 H 04/25/21 22:28: POC Glucose 221 H 04/26/21 06:26: POC Glucose 156 H Micro: Microbiology 04/23/21 06:20 Urine, Random Legionella Antigen - Final 04/23/21 06:20 Urine, Random Streptococcus pneumoniae Antigen (M - Final 04/23/21 03:33 Mucosa - Nasopharyngeal Respiratory Panel (PCR) - Final Physical Exam Const alert, oriented x3 and no apparent distress Constitutional Narrative: Sitting in bedside recliner. Nutritional Appearance: obese HEENT normocephalic, head/scalp atraumatic and moist oral mucous membranes Eyes PERRL, EOMs intact bilaterally and conjunctivae normal Neck supple General: trachea midline Chest inspection of chest normal Resp Auscultation: diminished lung sounds Cardio regular rate and regular rhythm GI normal to inspection, nondistended, normoactive bowel sounds Extremity no clubbing, cyanosis or edema Skin no rashes or lesions noted Neuro CN's II-XII intact bilaterally, moves all extremities and no focal motor deficits Psych cooperative and affect normal Charges/Coding Visit Charges Inpatient E&M: 22159 Subs Hosp L3
[2021-04-26 07:38] LABS: Absolute Lymphocyte Count 0.68 X10^3/uL (0.83-4.51); Absolute Neutrophil Count 7.1 X10^3/uL (2.0-7.7); Basophil# 0.01 X10^3/uL; Basophil% 0.1 % (0-1); Hemoglobin 13.5 g/dL (13.0-16.5); Lymphocyte # 0.68 X10^3/ul (0.83-4.51); Lymphocyte % 7.9 % (19-41); Mean Corp Hgb Conc 32.9 g/dL (32-36); Mean Corpuscular Hgb 26.7 pg (27.0-32.0); Mean Corpuscular Volume 81.2 fL (80-94); Mean Platelet Vol. 10.1 fl (6.2-12.0); Monocyte# 0.74 X10^3/uL; Monocyte% 8.6 % (0-10); NRBC Flagged by Analyzer 0 % (0-5); Neutrophil # 7.12 X10^3/uL (2.7-7.7); Neutrophil % 82.8 % (47-70); Platelet Count 227 K/mm3 (150-450); RBC Distribution Width CV 13.2 % (11.6-14.6); RBC Distribution Width SD 39.2 fl (35.1-43.9); Red Blood Count 5.05 M/mm3 (4.6-6.2); White Blood Count 8.6 K/mm3 (4.4-11.0)
[2021-04-26 08:02] LABS: ALB/GLOB Ratio 0.7 RATIO (0.9-2.4); AST(SGOT) 30 U/L (15-37); Alanine Aminotransfer ALT/SGPT 40 U/L (16-61); Albumin, Serum 2.9 g/dL (3.2-5.0); Alkaline Phosphatase 44 U/L (45-117); Anion Gap 8 (5-15); BUN 14 mg/dL (7-18); Calcium,Total 8.7 mg/dL (8.5-10.1); Chloride 93 mmol/L (98-107); Creatinine, Serum 0.88 mg/dL (0.70-1.30); EST Glomerular Filtration Rate 98 mL/min (>60); Est Glom Filt Rate - Afr Amer 118 mL/min (>60); Estimated Creatinine Clearance 110.23 ml/min; Globulin 4.4 g/dL (2.2-4.2); Glucose 156 mg/dL (74-106); Potassium 4.2 mmol/L (3.5-5.1); Protein, Total 7.3 g/dL (6.4-8.2); Sodium Level 131 mmol/L (136-145)
[2021-04-26 08:27] LABS: BNP,B-Type NATRIURETIC PEPTIDE 28.1 pg/mL (0-100)
[2021-04-26] MEDS: Enoxaparin 30 MG/0.3 ML Syringe SC ×2 (10:01→21:23)
[2021-04-26] MEDS: dexAMETHasone 4 MG Tablet 6 MG PO (10:01)
[2021-04-26] MEDS: guaiFENesin 1,200 MG Tablet 1200 MG PO ×2 (10:02→21:23)
[2021-04-26] MEDS: Lisinopril 20 MG Tablet PO (10:02)
[2021-04-26] MEDS: Calcium Carbonate 500 MG Tablet 1000 MG PO (10:02)
[2021-04-26] MEDS: hydroCHLOROthiazide 12.5mg 12.5 MG PO (10:04)
[2021-04-26] MEDS: Acetaminophen 325 MG Tablet 650 MG PO (10:13)
[2021-04-26] MEDS: Ascorbic Acid 500 MG Tablet 1000 MG PO ×2 (10:13→21:23)
--- NOTE | 2021-04-26 10:34 | PCM.PN.HOSP ---
Subjective Subjective Doing well, his respiratory status has declined though he does not feel terrible. He is currently on air Vo with him 95% with an FiO2 of 81 Objective Data Objective Data Vital Signs: Vital Signs Temp Pulse Resp BP Pulse Ox 100.1 F H 93 20 H 146/84 H 95 04/26/21 10:09 04/26/21 10:09 04/26/21 10:09 04/26/21 10:09 04/26/21 10:09 Oxygen Flow Rate (L/min) [At 8 REST with Oxygen] Oxygen Flow Rate (L/min) [ 8 AMBULATING with Oxygen #2] Oxygen Flow Rate (L/min) [ 6 AMBULATING with Oxygen #1] Oxygen Flow Rate (L/min) 40 Oxygen Delivery Method Airvo Weight: 258 lb 2.581 oz Body Mass Index (BMI) 35.4 Intake & Output: Intake and Output for Last 24 Hours 04/25/21 04/26/21 04/27/21 03:59 03:59 03:59 Intake Total 1130 / 1130 1150 / 1150 700 / 700 Output Total 775 / 775 1575 / 1575 Balance 355 / 355 -425 / -425 700 / 700 Lab / Micro Data Result Diagrams: 04/26/21 07:20 04/26/21 07:20 Labs: Laboratory Results - last 24 hr 04/25/21 11:44: POC Glucose 216 H 04/25/21 17:01: POC Glucose 251 H 04/25/21 22:28: POC Glucose 221 H 04/26/21 06:26: POC Glucose 156 H 04/26/21 07:20: WBC 8.6, RBC 5.05, Hgb 13.5, Hct 41.0, MCV 81.2, MCH 26.7 L, MCHC 32.9, RDW Std Deviation 39.2, RDW Coeff of Julián 13.2, Plt Count 227, MPV 10.1, Immature Gran % (Auto) 0.600, Neut % (Auto) 82.8 H, Lymph % (Auto) 7.9 L, [place] % (Auto) 8.6, Eos % (Auto) 0.0, Baso % (Auto) 0.1, Absolute Neuts (auto) 7.1, Absolute Lymphs (auto) 0.68 L, Nucleated RBC % 0 04/26/21 07:20: Sodium 131 L, Potassium 4.2, Chloride 93 L, Carbon Dioxide 30.0, Anion Gap 8, BUN 14, Creatinine 0.88, Estim Creat Clear Calc 110.23, Est GFR (MDRD) Af Amer 118, Est GFR (MDRD) Non-Af 98, BUN/Creatinine Ratio 16.0, Glucose 156 H, Calcium 8.7, Total Bilirubin 0.50, AST 30, ALT 40, Alkaline Phosphatase 44 L, C-React Prot Ext Range 77.40 H, Total Protein 7.3, Albumin 2.9 L, Globulin 4.4 H, Albumin/Globulin Ratio 0.7 L 04/26/21 07:20: B-Natriuretic Peptide 28.1 Micro: Microbiology 04/23/21 06:20 Urine, Random Legionella Antigen - Final 04/23/21 06:20 Urine, Random Streptococcus pneumoniae Antigen (M - Final 04/23/21 03:33 Mucosa - Nasopharyngeal Respiratory Panel (PCR) - Final Physical Exam Const alert, oriented x3 and no apparent distress General Appearance: cooperative HEENT normocephalic and moist oral mucous membranes Eyes PERRL, EOMs intact bilaterally and conjunctivae normal Neck supple and no JVD Resp normal respiratory effort, no retractions and no use of accessory muscles Auscultation: diminished lung sounds; Negative for crackles, rales, rhonchi or wheezes Cardio regular rate, regular rhythm, S1 normal heart sound, S2 normal heart sound and no murmurs GI soft to palpation, non-tender and non-distended; Negative for hepatosplenomegaly Extremity no clubbing, cyanosis or edema Skin no rashes or lesions noted Neuro no focal motor deficits and no sensory deficits noted Psych affect normal Appearance: appropriate Assessment & Plan Assessment/Plan (1) Pneumonia due to COVID-19 virus: (2) Hypoxia: PLAN: 1. Acute hypoxic respiratory failure secondary to COVID-19 pneumonia ?Continue with remdesivir and Decadron we'll transition this to p.o. ?Discontinue IV fluids and may need to transition to Lasix if respiratory status significantly worsens and he has physical exam findings consistent with fluid overload ?Outpatient evaluation at outside hospitals initially were negative for any lung findings. ?D-dimer was elevated however CTA of the chest is negative for PE ?Appreciate infectious disease and pulmonology input, continue with baricitinib ?He is febrile today to 100.1, sputum culture is pending 2. DM2 ?Hold home regimen ?Continue with sliding scale insulin ?Accu-Cheks AC at bedtime, will make adjustments as necessary 3. HTN/HLD/obesity ?Blood pressure is stable, will continue to monitor ?Continue with his home blood pressure medications and monitor renal function ?He is not on any medications for his cholesterol but should likely have follow-up as an outpatient ?BMI of 35.4, discussed lifestyle modifications DVT: Lovenox Charges/Coding Visit Charges Inpatient E&M: 49732 Subs Hosp L2
[2021-04-26] MEDS: Pantoprazole Sodium 40 MG Tablet PO (11:09)
[2021-04-26 11:16] LABS: Bedside Glucose 234 mg/dL (70-110)
[2021-04-26 17:06] LABS: Bedside Glucose 258 mg/dL (70-110)
[2021-04-26 22:36] LABS: Bedside Glucose 225 mg/dL (70-110)
[2021-04-27] VITALS (14 sets, daily range): BP systolic 110–127; BP diastolic 70–80; PULSE 70–104; RESP 18–24; TEMP 36.8–37.4; O2SAT 91–95
[2021-04-27] MEDS: Albuterol 2.5 MG/3 ML VIAL.NEB. INHALATION (02:05)
[2021-04-27] MEDS: Insulin Lispro 100 UNIT/ML INSULN.PEN SC ×4 (06:26→21:23)
--- NOTE | 2021-04-27 06:38 | PCM.PN.INT ---
Assessment & Plan Assessment/Plan (1) Pneumonia due to COVID-19 virus: (2) Hypoxia: PLAN: RECOMMENDATIONS: 1. Continue Decadron (05/03/21), Remdesivir (04/27/2021) and baricitinib (05/08/2021). 2. Diuretics, as needed, to maintain euvolemic state. 3. Awake prone positioning was encouraged. 4. Continue to wean FiO2 to maintain oxygen saturations at or above 90%. 5. Encourage incentive spirometer use and mobilize patient as tolerated. IMPRESSIONS: 1. Acute hypoxic respiratory failure secondary to COVID-19 pneumonia Continue current supportive measures including remdesivir, Decadron, baricitinib and prophylactic Lovenox. Continue to wean FiO2 to maintain oxygen saturations at or above 90%. CTA showed no evidence for PE. Awake prone positioning was encouraged. Encourage incentive spirometer use and mobilize patient as tolerated. Diuretics can be utilized as needed to maintain euvolemic state. 2. Diabetes mellitus Continue sliding scale insulin coverage. 3. Unvaccinated status/hypertension/hyperlipidemia/obesity Complicates care, management, recovery and prognosis. Okay to continue with baseline medications. This note was generated with [employer] dictation software. It may contain incorrect words, spelling, and punctuation that were not noted in checking the note before signing. Subjective Subjective The patient was seen and examined at the bedside this morning. Events from the last 24 hours have been reviewed. The patient is currently afebrile, hemodynamically stable and maintaining appropriate oxygen saturations on Airvo heated high flow with an FiO2 requirement of 65%. The patient is documented to be overall net +1 L for the hospitalization. The patient remains on remdesivir, Lovenox, Decadron and baricitinib. Objective Data Objective Data The patient's most recent lab work, culture data and imaging studies have all been personally reviewed. Respiratory viral panel was negative. Strep and urine Legionella antigens were negative. Vital Signs: Vital Signs Temp Pulse Resp BP Pulse Ox 98.7 F 70 18 127/80 H 95 04/27/21 03:30 04/27/21 04:08 04/27/21 03:30 04/27/21 03:30 04/27/21 04:00 Oxygen Flow Rate (L/min) [At 8 REST with Oxygen] Oxygen Flow Rate (L/min) [ 8 AMBULATING with Oxygen #2] Oxygen Flow Rate (L/min) [ 6 AMBULATING with Oxygen #1] Oxygen Flow Rate (L/min) 40 Oxygen Delivery Method Airvo Weight: 115.6 kg Body Mass Index (BMI) 35.4 Intake & Output: Intake and Output for Last 24 Hours 04/25/21 04/26/21 04/27/21 23:59 23:59 23:59 Intake Total 1150 / 1150 2550 / 2550 700 / 700 Output Total 1200 / 1575 1575 / 1575 250 / 250 Balance -50 / -425 975 / 975 450 / 450 Lab / Micro Data Attestation: I reviewed the patient's lab results. Result Diagrams: 04/27/21 05:55 04/27/21 05:55 Labs: Laboratory Results - last 24 hr 04/26/21 06:26: POC Glucose 156 H 04/26/21 07:20: WBC 8.6, RBC 5.05, Hgb 13.5, Hct 41.0, MCV 81.2, MCH 26.7 L, MCHC 32.9, RDW Std Deviation 39.2, RDW Coeff of Julián 13.2, Plt Count 227, MPV 10.1, Immature Gran % (Auto) 0.600, Neut % (Auto) 82.8 H, Lymph % (Auto) 7.9 L, [place] % (Auto) 8.6, Eos % (Auto) 0.0, Baso % (Auto) 0.1, Absolute Neuts (auto) 7.1, Absolute Lymphs (auto) 0.68 L, Nucleated RBC % 0 04/26/21 07:20: Sodium 131 L, Potassium 4.2, Chloride 93 L, Carbon Dioxide 30.0, Anion Gap 8, BUN 14, Creatinine 0.88, Estim Creat Clear Calc 110.23, Est GFR (MDRD) Af Amer 118, Est GFR (MDRD) Non-Af 98, BUN/Creatinine Ratio 16.0, Glucose 156 H, Calcium 8.7, Total Bilirubin 0.50, AST 30, ALT 40, Alkaline Phosphatase 44 L, C-React Prot Ext Range 77.40 H, Total Protein 7.3, Albumin 2.9 L, Globulin 4.4 H, Albumin/Globulin Ratio 0.7 L 04/26/21 07:20: B-Natriuretic Peptide 28.1 04/26/21 11:06: POC Glucose 234 H 04/26/21 16:55: POC Glucose 258 H 04/26/21 21:22: POC Glucose 225 H Micro: Microbiology 04/26/21 08:10 Sputum, Expectorated/Coughed Gram Stain - Final 04/23/21 06:20 Urine, Random Legionella Antigen - Final 04/23/21 06:20 Urine, Random Streptococcus pneumoniae Antigen (M - Final 04/23/21 03:33 Mucosa - Nasopharyngeal Respiratory Panel (PCR) - Final Physical Exam Const alert, oriented x3 and no apparent distress Constitutional Narrative: Sitting in bedside recliner. Nutritional Appearance: obese HEENT normocephalic, head/scalp atraumatic and moist oral mucous membranes Eyes PERRL, EOMs intact bilaterally and conjunctivae normal Neck supple General: trachea midline Chest inspection of chest normal Resp Auscultation: diminished lung sounds Cardio regular rate and regular rhythm GI normal to inspection, nondistended, normoactive bowel sounds Extremity no clubbing, cyanosis or edema Skin no rashes or lesions noted Neuro CN's II-XII intact bilaterally, moves all extremities and no focal motor deficits Psych cooperative and affect normal Charges/Coding Visit Charges Inpatient E&M: 50515 Subs Hosp L3
[2021-04-27 06:40] LABS: Absolute Lymphocyte Count 0.73 X10^3/uL (0.83-4.51); Absolute Neutrophil Count 6.5 X10^3/uL (2.0-7.7); Basophil# 0.01 X10^3/uL; Basophil% 0.1 % (0-1); Hematocrit 40.7 % (40-54); Hemoglobin 13.6 g/dL (13.0-16.5); Lymphocyte # 0.73 X10^3/ul (0.83-4.51); Mean Corp Hgb Conc 33.4 g/dL (32-36); Mean Corpuscular Hgb 27.3 pg (27.0-32.0); Mean Corpuscular Volume 81.7 fL (80-94); Mean Platelet Vol. 9.7 fl (6.2-12.0); Monocyte# 0.85 X10^3/uL; Monocyte% 10.4 % (0-10); NRBC Flagged by Analyzer 0 % (0-5); Neutrophil # 6.47 X10^3/uL (2.7-7.7); Neutrophil % 79.5 % (47-70); Platelet Count 248 K/mm3 (150-450); RBC Distribution Width CV 13.1 % (11.6-14.6); RBC Distribution Width SD 39.1 fl (35.1-43.9); Red Blood Count 4.98 M/mm3 (4.6-6.2); White Blood Count 8.1 K/mm3 (4.4-11.0)
[2021-04-27 07:08] LABS: ALB/GLOB Ratio 0.7 RATIO (0.9-2.4); AST(SGOT) 25 U/L (15-37); Alanine Aminotransfer ALT/SGPT 37 U/L (16-61); Albumin, Serum 2.8 g/dL (3.2-5.0); Alkaline Phosphatase 43 U/L (45-117); Anion Gap 6 (5-15); BUN 15 mg/dL (7-18); BUN/Creat Ratio 17.4 RATIO (10-20); Calcium,Total 9.1 mg/dL (8.5-10.1); Chloride 93 mmol/L (98-107); Creatinine, Serum 0.86 mg/dL (0.70-1.30); EST Glomerular Filtration Rate 99 mL/min (>60); Est Glom Filt Rate - Afr Amer 120 mL/min (>60); Estimated Creatinine Clearance 112.79 ml/min; Globulin 4.3 g/dL (2.2-4.2); Glucose 162 mg/dL (74-106); Potassium 4.6 mmol/L (3.5-5.1); Protein, Total 7.1 g/dL (6.4-8.2); Sodium Level 128 mmol/L (136-145)
--- NOTE | 2021-04-27 10:20 | PN.HOSP_ITS ---
Subjective Subjective Respiratory status seems to be improving, his FiO2 is coming down on the air Vo. He is about the same as yesterday in regards to respiratory status. Objective Data Objective Data Vital Signs: Vital Signs Temp Pulse Resp BP Pulse Ox 98.7 F 70 18 127/80 H 95 04/27/21 03:30 04/27/21 04:08 04/27/21 03:30 04/27/21 03:30 04/27/21 04:00 Oxygen Flow Rate (L/min) [At 8 REST with Oxygen] Oxygen Flow Rate (L/min) [ 8 AMBULATING with Oxygen #2] Oxygen Flow Rate (L/min) [ 6 AMBULATING with Oxygen #1] Oxygen Flow Rate (L/min) 40 Oxygen Delivery Method Airvo Weight: 254 lb 13.67 oz Body Mass Index (BMI) 35.4 Intake & Output: Intake and Output for Last 24 Hours 04/26/21 04/27/21 04/28/21 03:59 03:59 03:59 Intake Total 1150 / 1150 2300 / 2300 700 / 700 Output Total 1575 / 1575 1200 / 1200 250 / 250 Balance -425 / -425 1100 / 1100 450 / 450 Lab / Micro Data Result Diagrams: 04/27/21 05:55 04/27/21 05:55 Labs: Laboratory Results - last 24 hr 04/26/21 11:06: POC Glucose 234 H 04/26/21 16:55: POC Glucose 258 H 04/26/21 21:22: POC Glucose 225 H 04/27/21 05:55: WBC 8.1, RBC 4.98, Hgb 13.6, Hct 40.7, MCV 81.7, MCH 27.3, MCHC 33.4, RDW Std Deviation 39.1, RDW Coeff of Julián 13.1, Plt Count 248, MPV 9.7, I mmature Gran % (Auto) 1.000 H, Neut % (Auto) 79.5 H, Lymph % (Auto) 9.0 L, [place] % (Auto) 10.4 H, Eos % (Auto) 0.0, Baso % (Auto) 0.1, Absolute Neuts (auto) 6.5, Absolute Lymphs (auto) 0.73 L, Nucleated RBC % 0 04/27/21 05:55: Sodium 128 L, Potassium 4.6, Chloride 93 L, Carbon Dioxide 29.0, Anion Gap 6, BUN 15, Creatinine 0.86, Estim Creat Clear Calc 112.79, Est GFR (MDRD) Af Amer 120, Est GFR (MDRD) Non-Af 99, BUN/Creatinine Ratio 17.4, Glucose 162 H, Calcium 9.1, Total Bilirubin 0.70, AST 25, ALT 37, Alkaline Phosphatase 43 L, Total Protein 7.1, Albumin 2.8 L, Globulin 4.3 H, Albumin/Globulin Ratio 0.7 L Micro: Microbiology 04/26/21 08:10 Sputum, Expectorated/Coughed Gram Stain - Final 04/23/21 06:20 Urine, Random Legionella Antigen - Final 04/23/21 06:20 Urine, Random Streptococcus pneumoniae Antigen (M - Final 04/23/21 03:33 Mucosa - Nasopharyngeal Respiratory Panel (PCR) - Final Physical Exam Const alert, oriented x3 and no apparent distress General Appearance: cooperative HEENT normocephalic and moist oral mucous membranes Eyes PERRL, EOMs intact bilaterally and conjunctivae normal Neck supple and no JVD Resp normal respiratory effort, no retractions and no use of accessory muscles Auscultation: diminished lung sounds; Negative for crackles, rales, rhonchi or wheezes Cardio regular rate, regular rhythm, S1 normal heart sound, S2 normal heart sound and no murmurs GI soft to palpation, non-tender and non-distended; Negative for hepatosplenomegaly Extremity no clubbing, cyanosis or edema Skin no rashes or lesions noted Neuro no focal motor deficits and no sensory deficits noted Psych affect normal Appearance: appropriate Assessment & Plan Assessment/Plan (1) Pneumonia due to COVID-19 virus: (2) Hypoxia: PLAN: 1. Acute hypoxic respiratory failure secondary to COVID-19 pneumonia ?Continue with remdesivir and Decadron we'll transition this to p.o. ?No crackles on exam, will continue to monitor for possible Lasix need ?Outpatient evaluation at outside hospitals initially were negative for any lung findings. ?D-dimer was elevated however CTA of the chest is negative for PE ?Appreciate infectious disease and pulmonology input, continue with baricitinib ?Currently afebrile, sputum culture with gram-positive organisms, will place him on Rocephin and azithromycin pending sensitivities 2. DM2 ?Hold home regimen ?Continue with sliding scale insulin ?Accu-Cheks AC at bedtime, will make adjustments as necessary 3. HTN/HLD/obesity ?Blood pressure is stable, will continue to monitor ?Continue with his home blood pressure medications and monitor renal function ?He is not on any medications for his cholesterol but should likely have follow- up as an outpatient ?BMI of 35.4, discussed lifestyle modifications DVT: Lovenox Charges/Coding Visit Charges Inpatient E&M: 50408 Subs Hosp L2
[2021-04-27] MEDS: dexAMETHasone 4 MG Tablet 6 MG PO (11:08)
[2021-04-27] MEDS: hydroCHLOROthiazide 12.5mg 12.5 MG PO (11:09)
[2021-04-27] MEDS: Enoxaparin 30 MG/0.3 ML Syringe SC ×2 (11:09→21:24)
[2021-04-27] MEDS: guaiFENesin 1,200 MG Tablet 1200 MG PO ×2 (11:10→21:25)
[2021-04-27] MEDS: Ascorbic Acid 500 MG Tablet 1000 MG PO ×2 (11:11→21:25)
[2021-04-27] MEDS: Pantoprazole Sodium 40 MG Tablet PO (11:11)
[2021-04-27] MEDS: Lisinopril 20 MG Tablet PO (11:12)
[2021-04-27 11:25] LABS: Bedside Glucose 195 mg/dL (70-110)
[2021-04-27 11:25] LABS: Bedside Glucose 173 mg/dL (70-110)
[2021-04-27] MEDS: Azithromycin 250 MG Tablet 500 MG PO (12:33)
[2021-04-27] MEDS: Ceftriaxone 1 GM/50 ML BAG IV (12:34)
[2021-04-27 16:40] LABS: Bedside Glucose 254 mg/dL (70-110)
[2021-04-27] MEDS: MELATONIN 3 MG TABLET PO (21:26)
[2021-04-28] VITALS (16 sets, daily range): BP systolic 105–130; BP diastolic 64–87; PULSE 70–91; RESP 18–24; TEMP 36.3–37.1; O2SAT 91–97
[2021-04-28 05:31] LABS: Bedside Glucose 267 mg/dL (70-110)
[2021-04-28] MEDS: Insulin Lispro 100 UNIT/ML INSULN.PEN SC ×4 (05:49→23:00)
[2021-04-28] MEDS: 0.9% Saline Lock 10 ML Syringe IV ×5 (05:54→23:26)
[2021-04-28 06:34] LABS: Absolute Lymphocyte Count 0.82 X10^3/uL (0.83-4.51); Basophil# 0.01 X10^3/uL; Basophil% 0.1 % (0-1); Hematocrit 38.5 % (40-54); Hemoglobin 12.7 g/dL (13.0-16.5); Lymphocyte # 0.82 X10^3/ul (0.83-4.51); Lymphocyte % 10.8 % (19-41); Mean Corpuscular Hgb 26.7 pg (27.0-32.0); Mean Corpuscular Volume 81.1 fL (80-94); Mean Platelet Vol. 10.2 fl (6.2-12.0); Monocyte# 0.74 X10^3/uL; Monocyte% 9.7 % (0-10); NRBC Flagged by Analyzer 0 % (0-5); Neutrophil # 5.98 X10^3/uL (2.7-7.7); Neutrophil % 78.6 % (47-70); POSITIVE MORPHOLOGY YES; Platelet Count 280 K/mm3 (150-450); RBC Distribution Width CV 12.9 % (11.6-14.6); RBC Distribution Width SD 38.2 fl (35.1-43.9); Red Blood Count 4.75 M/mm3 (4.6-6.2); White Blood Count 7.6 K/mm3 (4.4-11.0)
[2021-04-28 06:37] LABS: Differential Indicated SCAN CRITERIA MET
[2021-04-28 06:54] LABS: Differential Comment SCANNED
[2021-04-28 07:02] LABS: ALB/GLOB Ratio 0.6 RATIO (0.9-2.4); AST(SGOT) 17 U/L (15-37); Alanine Aminotransfer ALT/SGPT 32 U/L (16-61); Albumin, Serum 2.5 g/dL (3.2-5.0); Alkaline Phosphatase 37 U/L (45-117); Anion Gap 8 (5-15); BUN 17 mg/dL (7-18); BUN/Creat Ratio 19.7 RATIO (10-20); Calcium,Total 8.7 mg/dL (8.5-10.1); Chloride 95 mmol/L (98-107); Creatinine, Serum 0.86 mg/dL (0.70-1.30); EST Glomerular Filtration Rate 100 mL/min (>60); Est Glom Filt Rate - Afr Amer 121 mL/min (>60); Estimated Creatinine Clearance 112.79 ml/min; Globulin 4.1 g/dL (2.2-4.2); Glucose 144 mg/dL (74-106); Potassium 4.1 mmol/L (3.5-5.1); Protein, Total 6.6 g/dL (6.4-8.2); Sodium Level 131 mmol/L (136-145)
--- NOTE | 2021-04-28 08:57 | PCM.PN.INT ---
Assessment & Plan Assessment/Plan (1) Pneumonia due to COVID-19 virus: (2) Hypoxia: PLAN: RECOMMENDATIONS: 1. Continue Decadron (05/03/21) and baricitinib (05/08/2021). Completed Remdesivir 2. Diuretics, as needed, to maintain euvolemic state. 3. Awake prone positioning was encouraged. 4. Continue to wean FiO2 to maintain oxygen saturations at or above 90%. 5. Encourage incentive spirometer use and mobilize patient as tolerated. 6. Initiate AutoPap with sleep IMPRESSIONS: 1. Acute hypoxic respiratory failure secondary to COVID-19 pneumonia Continue current supportive measures including remdesivir, Decadron, baricitinib and prophylactic Lovenox. Continue to wean FiO2 to maintain oxygen saturations at or above 90%. CTA showed no evidence for PE. Awake prone positioning was encouraged. Encourage incentive spirometer use and mobilize patient as tolerated. Diuretics can be utilized as needed to maintain euvolemic state. Likely dose tomorrow. Clinical suspicion for worsening oxygen status at night secondary to sleep apnea. AutoPap will be initiated. 2. Diabetes mellitus Continue sliding scale insulin coverage. 3. Unvaccinated status/hypertension/hyperlipidemia/obesity Complicates care, management, recovery and prognosis. Okay to continue with baseline medications. This note was generated with [employer] dictation software. It may contain incorrect words, spelling, and punctuation that were not noted in checking the note before signing. Subjective Subjective Patient did okay overnight. Patient is reporting an increased productive cough. No chest pain, nausea or vomiting has been reported. Patient is not reporting any hemoptysis or epistaxis. Patient does report that he used a CPAP in the past, but lost weight and has not used it in some time. Patient is unaware of his settings. Objective Data Objective Data Vital Signs: Vital Signs Temp Pulse Resp BP Pulse Ox 36.8 C 70 20 H 118/68 93 04/28/21 05:30 04/28/21 07:42 04/28/21 05:30 04/28/21 05:30 04/28/21 07:42 Oxygen Flow Rate (L/min) [At 8 REST with Oxygen] Oxygen Flow Rate (L/min) [ 8 AMBULATING with Oxygen #2] Oxygen Flow Rate (L/min) [ 6 AMBULATING with Oxygen #1] Oxygen Flow Rate (L/min) 55 Oxygen Delivery Method Airvo Weight: 112.7 kg Body Mass Index (BMI) 35.4 Intake & Output: Intake and Output for Last 24 Hours 04/26/21 04/27/21 04/28/21 23:59 23:59 23:59 Intake Total 2550 / 2550 1000 / 1000 Output Total 1575 / 1575 975 / 975 Balance 975 / 975 Lab / Micro Data Result Diagrams: 04/28/21 06:17 04/28/21 06:17 Labs: Laboratory Results - last 24 hr 04/27/21 06:24: POC Glucose 173 H 04/27/21 10:55: POC Glucose 195 H 04/27/21 16:18: POC Glucose 254 H 04/27/21 21:16: POC Glucose 267 H 04/28/21 06:17: WBC 7.6, RBC 4.75, Hgb 12.7 L, Hct 38.5 L, MCV 81.1, MCH 26.7 L, MCHC 33.0, RDW Std Deviation 38.2, RDW Coeff of Julián 12.9, Plt Count 280, MPV 10.2, Immature Gran % (Auto) 0.800, Neut % (Auto) 78.6 H, Lymph % (Auto) 10.8 L, [place] % (Auto) 9.7, Eos % (Auto) 0.0, Baso % (Auto) 0.1, Absolute Neuts (auto) 6.0, Absolute Lymphs (auto) 0.82 L, Nucleated RBC % 0, Differential Comment SCANNED 04/28/21 06:17: Sodium 131 L, Potassium 4.1, Chloride 95 L, Carbon Dioxide 28.0, Anion Gap 8, BUN 17, Creatinine 0.86, Estim Creat Clear Calc 112.79, Est GFR (MDRD) Af Amer 121, Est GFR (MDRD) Non-Af 100, BUN/Creatinine Ratio 19.7, Glucose 144 H, Calcium 8.7, Total Bilirubin 0.40, AST 17, ALT 32, Alkaline Phosphatase 37 L, Total Protein 6.6, Albumin 2.5 L, Globulin 4.1, Albumin/Globulin Ratio 0.6 L Micro: Microbiology 04/26/21 08:10 Sputum, Expectorated/Coughed Gram Stain - Final 04/26/21 08:10 Sputum, Expectorated/Coughed Respiratory Culture - Final 04/23/21 06:20 Urine, Random Legionella Antigen - Final 04/23/21 06:20 Urine, Random Streptococcus pneumoniae Antigen (M - Final 04/23/21 03:33 Mucosa - Nasopharyngeal Respiratory Panel (PCR) - Final Physical Exam Const alert, oriented x3 and no apparent distress Constitutional Narrative: Sitting in bedside recliner. Nutritional Appearance: obese HEENT normocephalic, head/scalp atraumatic and moist oral mucous membranes Eyes PERRL, EOMs intact bilaterally and conjunctivae normal Neck supple General: trachea midline Chest inspection of chest normal Chest: symmetrical chest wall rise; Negative for crepitus Resp Auscultation: diminished lung sounds; Negative for rales, rhonchi or wheezes Cardio regular rate and regular rhythm GI normal to inspection, nondistended, normoactive bowel sounds Extremity no clubbing, cyanosis or edema Skin no rashes or lesions noted Neuro CN's II-XII intact bilaterally, moves all extremities and no focal motor deficits Psych cooperative and affect normal Charges/Coding Visit Charges Inpatient E&M: 22516 Subs Hosp L3
[2021-04-28] MEDS: Ceftriaxone 1 GM/50 ML BAG IV (09:37)
[2021-04-28] MEDS: Enoxaparin 30 MG/0.3 ML Syringe SC ×2 (09:37→23:00)
[2021-04-28] MEDS: Ascorbic Acid 500 MG Tablet 1000 MG PO ×2 (09:40→23:00)
[2021-04-28] MEDS: Azithromycin 250 MG Tablet 500 MG PO (09:40)
[2021-04-28] MEDS: hydroCHLOROthiazide 12.5mg 12.5 MG PO (09:40)
[2021-04-28] MEDS: Lisinopril 20 MG Tablet PO (09:40)
[2021-04-28] MEDS: Pantoprazole Sodium 40 MG Tablet PO (09:41)
[2021-04-28] MEDS: guaiFENesin 1,200 MG Tablet 1200 MG PO ×2 (09:41→23:00)
[2021-04-28] MEDS: dexAMETHasone 4 MG Tablet 6 MG PO (09:41)
[2021-04-28 11:06] LABS: Bedside Glucose 157 mg/dL (70-110)
--- NOTE | 2021-04-28 11:09 | PN.HOSP_ITS ---
Subjective Subjective Doing well, no issues overnight. Still requiring air Vo at a slightly higher FiO2 today. Continue to encourage incentive spirometry, Pep, proning Objective Data Objective Data Vital Signs: Vital Signs Temp Pulse Resp BP Pulse Ox 98.7 F 86 18 123/79 H 96 04/28/21 09:33 04/28/21 09:33 04/28/21 09:33 04/28/21 09:33 04/28/21 09:33 Oxygen Flow Rate (L/min) [At 8 REST with Oxygen] Oxygen Flow Rate (L/min) [ 8 AMBULATING with Oxygen #2] Oxygen Flow Rate (L/min) [ 6 AMBULATING with Oxygen #1] Oxygen Flow Rate (L/min) 55 Oxygen Delivery Method Airvo Weight: 248 lb 7.375 oz Body Mass Index (BMI) 35.4 Intake & Output: Intake and Output for Last 24 Hours 04/27/21 04/28/21 04/29/21 03:59 03:59 03:59 Intake Total 2300 / 2300 1000 / 1000 Output Total 1200 / 1200 975 / 975 Balance 1100 / 1100 Lab / Micro Data Result Diagrams: 04/28/21 06:17 04/28/21 06:17 Labs: Laboratory Results - last 24 hr 04/27/21 06:24: POC Glucose 173 H 04/27/21 10:55: POC Glucose 195 H 04/27/21 16:18: POC Glucose 254 H 04/27/21 21:16: POC Glucose 267 H 04/28/21 05:43: POC Glucose 157 H 04/28/21 06:17: WBC 7.6, RBC 4.75, Hgb 12.7 L, Hct 38.5 L, MCV 81.1, MCH 26.7 L, MCHC 33.0, RDW Std Deviation 38.2, RDW Coeff of Julián 12.9, Plt Count 280, MPV 10.2, Immature Gran % (Auto) 0.800, Neut % (Auto) 78.6 H, Lymph % (Auto) 10.8 L, [place] % (Auto) 9.7, Eos % (Auto) 0.0, Baso % (Auto) 0.1, Absolute Neuts (auto) 6.0, Absolute Lymphs (auto) 0.82 L, Nucleated RBC % 0, Differential Comment SCANNED 04/28/21 06:17: Sodium 131 L, Potassium 4.1, Chloride 95 L, Carbon Dioxide 28.0, Anion Gap 8, BUN 17, Creatinine 0.86, Estim Creat Clear Calc 112.79, Est GFR (MDRD) Af Amer 121, Est GFR (MDRD) Non-Af 100, BUN/Creatinine Ratio 19.7, Glucose 144 H, Calcium 8.7, Total Bilirubin 0.40, AST 17, ALT 32, Alkaline Phosphatase 37 L, Total Protein 6.6, Albumin 2.5 L, Globulin 4.1, Albumin/Globulin Ratio 0.6 L Micro: Microbiology 04/26/21 08:10 Sputum, Expectorated/Coughed Gram Stain - Final 04/26/21 08:10 Sputum, Expectorated/Coughed Respiratory Culture - Final 04/23/21 06:20 Urine, Random Legionella Antigen - Final 04/23/21 06:20 Urine, Random Streptococcus pneumoniae Antigen (M - Final 04/23/21 03:33 Mucosa - Nasopharyngeal Respiratory Panel (PCR) - Final Physical Exam Narrative Const alert, oriented x3 and no apparent distress General Appearance: cooperative HEENT normocephalic and moist oral mucous membranes Eyes PERRL, EOMs intact bilaterally and conjunctivae normal Neck supple and no JVD Resp normal respiratory effort, no retractions and no use of accessory muscles Auscultation: diminished lung sounds; Negative for crackles, rales, rhonchi or wheezes Cardio regular rate, regular rhythm, S1 normal heart sound, S2 normal heart sound and no murmurs GI soft to palpation, non-tender and non-distended; Negative for hepatosplenomegaly Extremity no clubbing, cyanosis or edema Skin no rashes or lesions noted Neuro no focal motor deficits and no sensory deficits noted Psych affect normal Appearance: appropriate Assessment & Plan Assessment/Plan (1) Pneumonia due to COVID-19 virus: (2) Hypoxia: PLAN: 1. Acute hypoxic respiratory failure secondary to COVID-19 pneumonia ?Continue with remdesivir and Decadron we'll transition this to p.o. ?No crackles on exam, will continue to monitor for possible Lasix need ?Outpatient evaluation at outside hospitals initially were negative for any lung findings. ?D-dimer was elevated however CTA of the chest is negative for PE ?Appreciate infectious disease and pulmonology input, continue with baricitinib ?Currently afebrile, sputum culture with normal dinh, will discontinue antibiotics 2. DM2 ?Hold home regimen ?Continue with sliding scale insulin ?Accu-Cheks AC at bedtime, will make adjustments as necessary 3. HTN/HLD/obesity ?Blood pressure is stable, will continue to monitor ?Continue with his home blood pressure medications and monitor renal function ?He is not on any medications for his cholesterol but should likely have follow- up as an outpatient ?BMI of 35.4, discussed lifestyle modifications DVT: Lovenox Charges/Coding Visit Charges Inpatient E&M: 13802 Subs Hosp L2
[2021-04-28 12:56] LABS: Bedside Glucose 250 mg/dL (70-110)
[2021-04-28 17:01] LABS: Bedside Glucose 252 mg/dL (70-110)
--- NOTE | 2021-04-28 18:33 | NURSING ---
frozen in handoff on computer so nurse to nurse face to face report given
[2021-04-29] VITALS (19 sets, daily range): BP systolic 93–122; BP diastolic 43–77; PULSE 70–90; RESP 14–20; TEMP 36.7–37.2; O2SAT 90–97
[2021-04-29 00:50] LABS: Bedside Glucose 195 mg/dL (70-110)
[2021-04-29] MEDS: Insulin Lispro 100 UNIT/ML INSULN.PEN SC ×4 (06:39→21:08)
[2021-04-29 07:46] LABS: Absolute Lymphocyte Count 0.93 X10^3/uL (0.83-4.51); Absolute Neutrophil Count 9.2 X10^3/uL (2.0-7.7); Basophil# 0.01 X10^3/uL; Basophil% 0.1 % (0-1); Eosinophil# 0.05 X10^3/uL; Eosinophils% 0.5 % (0-5); Hematocrit 38.6 % (40-54); Hemoglobin 13.1 g/dL (13.0-16.5); Lymphocyte # 0.93 X10^3/ul (0.83-4.51); Lymphocyte % 8.4 % (19-41); Mean Corp Hgb Conc 33.9 g/dL (32-36); Mean Corpuscular Hgb 27.3 pg (27.0-32.0); Mean Corpuscular Volume 80.4 fL (80-94); Mean Platelet Vol. 9.9 fl (6.2-12.0); Monocyte# 0.79 X10^3/uL; Monocyte% 7.1 % (0-10); NRBC Flagged by Analyzer 0 % (0-5); Neutrophil # 9.16 X10^3/uL (2.7-7.7); Neutrophil % 82.8 % (47-70); Platelet Count 271 K/mm3 (150-450); RBC Distribution Width CV 12.7 % (11.6-14.6); RBC Distribution Width SD 37.2 fl (35.1-43.9); White Blood Count 11.1 K/mm3 (4.4-11.0)
[2021-04-29 08:13] LABS: ALB/GLOB Ratio 0.6 RATIO (0.9-2.4); AST(SGOT) 16 U/L (15-37); Alanine Aminotransfer ALT/SGPT 31 U/L (16-61); Albumin, Serum 2.4 g/dL (3.2-5.0); Alkaline Phosphatase 39 U/L (45-117); Anion Gap 8 (5-15); BUN 16 mg/dL (7-18); BUN/Creat Ratio 18.8 RATIO (10-20); Calcium,Total 8.9 mg/dL (8.5-10.1); Chloride 94 mmol/L (98-107); Creatinine, Serum 0.85 mg/dL (0.70-1.30); EST Glomerular Filtration Rate 101 mL/min (>60); Est Glom Filt Rate - Afr Amer 123 mL/min (>60); Estimated Creatinine Clearance 114.12 ml/min; Glucose 144 mg/dL (74-106); Potassium 3.9 mmol/L (3.5-5.1); Protein, Total 6.4 g/dL (6.4-8.2); Sodium Level 131 mmol/L (136-145)
--- NOTE | 2021-04-29 09:54 | PCM.PN.INT ---
Assessment & Plan Assessment/Plan (1) Pneumonia due to COVID-19 virus: (2) Hypoxia: PLAN: RECOMMENDATIONS: 1. Continue Decadron (05/03/21) and baricitinib (05/08/2021). Completed Remdesivir 2. Diuretics, as needed, to maintain euvolemic state. Dose today 3. Awake prone positioning was encouraged. 4. Continue to wean FiO2 to maintain oxygen saturations at or above 90%. 5. Encourage incentive spirometer use and mobilize patient as tolerated. 6. Initiate BiPAP with sleep IMPRESSIONS: 1. Acute hypoxic respiratory failure secondary to COVID-19 pneumonia Continue current supportive measures including remdesivir, Decadron, baricitinib and prophylactic Lovenox. Continue to wean FiO2 to maintain oxygen saturations at or above 90%. CTA showed no evidence for PE. Awake prone positioning was encouraged. Encourage incentive spirometer use and mobilize patient as tolerated. Diuretics can be utilized as needed to maintain euvolemic state. Dose today. Clinical suspicion for worsening oxygen status at night secondary to sleep apnea. BiPAP will be initiated with sleep. 2. Diabetes mellitus Continue sliding scale insulin coverage. 3. Unvaccinated status/hypertension/hyperlipidemia/obesity Complicates care, management, recovery and prognosis. Okay to continue with baseline medications. This note was generated with [employer] dictation software. It may contain incorrect words, spelling, and punctuation that were not noted in checking the note before signing. Subjective Subjective Patient did okay over the last 24 hours. Patient continues to report a productive cough without hemoptysis. Patient did not wear AutoPap overnight, but respiratory did report some concerns for central sleep apnea symptomatology. Patient once again has required increased FiO2 up on waking this morning. Objective Data Objective Data Vital Signs: Vital Signs Temp Pulse Resp BP Pulse Ox 37.1 C 89 20 H 116/66 93 04/29/21 06:15 04/29/21 06:15 04/29/21 06:15 04/29/21 06:15 04/29/21 08:15 Oxygen Flow Rate (L/min) [At 8 REST with Oxygen] Oxygen Flow Rate (L/min) [ 8 AMBULATING with Oxygen #2] Oxygen Flow Rate (L/min) [ 6 AMBULATING with Oxygen #1] Oxygen Flow Rate (L/min) 55 Oxygen Delivery Method Airvo Weight: 113.7 kg Body Mass Index (BMI) 35.4 Intake & Output: Intake and Output for Last 24 Hours 04/27/21 04/28/21 04/29/21 23:59 23:59 23:59 Intake Total 1000 / 1000 50 / 50 Output Total 975 / 975 400 / 400 700 / 700 Balance -350 / -350 -700 / -700 Lab / Micro Data Result Diagrams: 04/29/21 07:20 04/29/21 07:20 Labs: Laboratory Results - last 24 hr 04/28/21 05:43: POC Glucose 157 H 04/28/21 12:34: POC Glucose 250 H 04/28/21 16:54: POC Glucose 252 H 04/28/21 23:04: POC Glucose 195 H 04/29/21 07:20: WBC 11.1 H, RBC 4.80, Hgb 13.1, Hct 38.6 L, MCV 80.4, MCH 27.3, MCHC 33.9, RDW Std Deviation 37.2, RDW Coeff of Julián 12.7, Plt Count 271, MPV 9.9, Immature Gran % (Auto) 1.100 H, Neut % (Auto) 82.8 H, Lymph % (Auto) 8.4 L, [place] % (Auto) 7.1, Eos % (Auto) 0.5, Baso % (Auto) 0.1, Absolute Neuts (auto) 9.2 H, Absolute Lymphs (auto) 0.93, Nucleated RBC % 0 04/29/21 07:20: Sodium 131 L, Potassium 3.9, Chloride 94 L, Carbon Dioxide 29.0, Anion Gap 8, BUN 16, Creatinine 0.85, Estim Creat Clear Calc 114.12, Est GFR (MDRD) Af Amer 123, Est GFR (MDRD) Non-Af 101, BUN/Creatinine Ratio 18.8, Glucose 144 H, Calcium 8.9, Total Bilirubin 0.60, AST 16, ALT 31, Alkaline Phosphatase 39 L, Total Protein 6.4, Albumin 2.4 L, Globulin 4.0, Albumin/Globulin Ratio 0.6 L Micro: Microbiology 04/26/21 08:10 Sputum, Expectorated/Coughed Gram Stain - Final 04/26/21 08:10 Sputum, Expectorated/Coughed Respiratory Culture - Final 04/23/21 06:20 Urine, Random Legionella Antigen - Final 04/23/21 06:20 Urine, Random Streptococcus pneumoniae Antigen (M - Final 04/23/21 03:33 Mucosa - Nasopharyngeal Respiratory Panel (PCR) - Final Physical Exam Const alert, oriented x3 and no apparent distress Constitutional Narrative: Sitting in bedside recliner. Nutritional Appearance: obese HEENT normocephalic, head/scalp atraumatic and moist oral mucous membranes Eyes PERRL, EOMs intact bilaterally and conjunctivae normal Neck supple General: trachea midline Chest inspection of chest normal Chest: symmetrical chest wall rise; Negative for crepitus Resp normal respiratory effort Auscultation: rhonchi throughout (Improves with coughing) and diminished lung sounds; Negative for rales or wheezes Cardio regular rate and regular rhythm GI normal to inspection, nondistended, normoactive bowel sounds Extremity no clubbing, cyanosis or edema Skin no rashes or lesions noted Neuro CN's II-XII intact bilaterally, moves all extremities and no focal motor deficits Psych cooperative and affect normal Charges/Coding Visit Charges Inpatient E&M: 29153 Subs Hosp L3
[2021-04-29] MEDS: Furosemide 40 MG/4 ML Vial IV (10:49)
[2021-04-29] MEDS: Enoxaparin 30 MG/0.3 ML Syringe SC ×2 (10:51→21:07)
[2021-04-29] MEDS: hydroCHLOROthiazide 12.5mg 12.5 MG PO (10:51)
[2021-04-29] MEDS: Pantoprazole Sodium 40 MG Tablet PO (10:52)
[2021-04-29] MEDS: Lisinopril 20 MG Tablet PO (10:52)
[2021-04-29] MEDS: guaiFENesin 1,200 MG Tablet 1200 MG PO ×2 (10:52→21:07)
[2021-04-29] MEDS: Ascorbic Acid 500 MG Tablet 1000 MG PO ×2 (10:52→21:07)
[2021-04-29] MEDS: dexAMETHasone 4 MG Tablet 6 MG PO (10:53)
[2021-04-29 12:36] LABS: Bedside Glucose 151 mg/dL (70-110)
[2021-04-29 12:36] LABS: Bedside Glucose 193 mg/dL (70-110)
--- NOTE | 2021-04-29 14:20 | PCM.PN.HOSP ---
Subjective Subjective Doing well, no issues overnight. Maintaining his oxygen saturations on air Vo though he did have to go up a little bit on his FiO2. Continue with baricitinib and the other interventions and he is can receive a dose of Lasix this morning Objective Data Objective Data Vital Signs: Vital Signs Temp Pulse Resp BP Pulse Ox 98.9 F 81 18 113/68 93 04/29/21 11:00 04/29/21 14:02 04/29/21 11:00 04/29/21 11:00 04/29/21 14:02 Oxygen Flow Rate (L/min) [At 8 REST with Oxygen] Oxygen Flow Rate (L/min) [ 8 AMBULATING with Oxygen #2] Oxygen Flow Rate (L/min) [ 6 AMBULATING with Oxygen #1] Oxygen Flow Rate (L/min) 55 Oxygen Delivery Method Airvo Weight: 250 lb 10.649 oz Body Mass Index (BMI) 35.4 Intake & Output: Intake and Output for Last 24 Hours 04/28/21 04/29/21 04/30/21 03:59 03:59 03:59 Intake Total 1000 / 1000 50 / 50 Output Total 975 / 975 400 / 400 1425 / 1425 Balance -350 / -350 -1425 / -1425 Lab / Micro Data Result Diagrams: 04/29/21 07:20 04/29/21 07:20 Labs: Laboratory Results - last 24 hr 04/28/21 16:54: POC Glucose 252 H 04/28/21 23:04: POC Glucose 195 H 04/29/21 06:39: POC Glucose 151 H 04/29/21 07:20: WBC 11.1 H, RBC 4.80, Hgb 13.1, Hct 38.6 L, MCV 80.4, MCH 27.3, MCHC 33.9, RDW Std Deviation 37.2, RDW Coeff of Julián 12.7, Plt Count 271, MPV 9.9, Immature Gran % (Auto) 1.100 H, Neut % (Auto) 82.8 H, Lymph % (Auto) 8.4 L, [place] % (Auto) 7.1, Eos % (Auto) 0.5, Baso % (Auto) 0.1, Absolute Neuts (auto) 9.2 H, Absolute Lymphs (auto) 0.93, Nucleated RBC % 0 04/29/21 07:20: Sodium 131 L, Potassium 3.9, Chloride 94 L, Carbon Dioxide 29.0, Anion Gap 8, BUN 16, Creatinine 0.85, Estim Creat Clear Calc 114.12, Est GFR (MDRD) Af Amer 123, Est GFR (MDRD) Non-Af 101, BUN/Creatinine Ratio 18.8, Glucose 144 H, Calcium 8.9, Total Bilirubin 0.60, AST 16, ALT 31, Alkaline Phosphatase 39 L, Total Protein 6.4, Albumin 2.4 L, Globulin 4.0, Albumin/Globulin Ratio 0.6 L 04/29/21 12:20: POC Glucose 193 H Micro: Microbiology 04/26/21 08:10 Sputum, Expectorated/Coughed Gram Stain - Final 04/26/21 08:10 Sputum, Expectorated/Coughed Respiratory Culture - Final 04/23/21 06:20 Urine, Random Legionella Antigen - Final 04/23/21 06:20 Urine, Random Streptococcus pneumoniae Antigen (M - Final 04/23/21 03:33 Mucosa - Nasopharyngeal Respiratory Panel (PCR) - Final Physical Exam Narrative Const alert, oriented x3 and no apparent distress General Appearance: cooperative HEENT normocephalic and moist oral mucous membranes Eyes PERRL, EOMs intact bilaterally and conjunctivae normal Neck supple and no JVD Resp normal respiratory effort, no retractions and no use of accessory muscles Auscultation: crackles and diminished lung sounds; Negative for rales, rhonchi or wheezes Cardio regular rate, regular rhythm, S1 normal heart sound, S2 normal heart sound and no murmurs GI soft to palpation, non-tender and non-distended; Negative for hepatosplenomegaly Extremity no clubbing, cyanosis or edema Skin no rashes or lesions noted Neuro no focal motor deficits and no sensory deficits noted Psych affect normal Appearance: appropriate Assessment & Plan Assessment/Plan (1) Pneumonia due to COVID-19 virus: (2) Hypoxia: PLAN: 1. Acute hypoxic respiratory failure secondary to COVID-19 pneumonia ?Continue with Decadron, he completed remdesivir ?Mild crackles on exam, given a dose of Lasix by pulmonology ?Outpatient evaluation at outside hospitals initially were negative for any lung findings. ?D-dimer was elevated however CTA of the chest is negative for PE ?Appreciate infectious disease and pulmonology input, continue with baricitinib ?Currently afebrile, sputum culture with normal dinh, will discontinue antibiotics 2. DM2 ?Hold home regimen ?Continue with sliding scale insulin ?Accu-Cheks AC at bedtime, will make adjustments as necessary 3. HTN/HLD/obesity ?Blood pressure is stable, will continue to monitor ?Continue with his home blood pressure medications and monitor renal function ?He is not on any medications for his cholesterol but should likely have follow-up as an outpatient ?BMI of 35.4, discussed lifestyle modifications DVT: Lovenox Charges/Coding Visit Charges Inpatient E&M: 49218 Subs Hosp L2
--- NOTE | 2021-04-29 15:16 | NURSING ---
pt states that off and on for last couple of hours, have had hot and cold sweats, intermittent dizziness pt states he thought it was his blood sugar my vision gets spots sometimes and that has happened before when my blood sugar drops blood sugar obtained. pt denies any jaw/neck/shoulder/arm pain, no GERD symptoms, no SOB with deep breath, no weaknesses.
[2021-04-29 15:26] LABS: Bedside Glucose 297 mg/dL (70-110)
[2021-04-29 21:25] LABS: Bedside Glucose 270 mg/dL (70-110)
[2021-04-30] VITALS (13 sets, daily range): BP systolic 95–120; BP diastolic 56–73; PULSE 71–98; RESP 14–80; TEMP 36.6–37; O2SAT 92–98
[2021-04-30 07:01] LABS: Bedside Glucose 119 mg/dL (70-110)
[2021-04-30 07:49] LABS: Absolute Lymphocyte Count 1.05 X10^3/uL (0.83-4.51); Absolute Neutrophil Count 9.1 X10^3/uL (2.0-7.7); Basophil# 0.03 X10^3/uL; Basophil% 0.3 % (0-1); Eosinophil# 0.15 X10^3/uL; Eosinophils% 1.3 % (0-5); Hematocrit 42.5 % (40-54); Hemoglobin 13.8 g/dL (13.0-16.5); Lymphocyte # 1.05 X10^3/ul (0.83-4.51); Lymphocyte % 9.3 % (19-41); Mean Corp Hgb Conc 32.5 g/dL (32-36); Mean Corpuscular Hgb 26.4 pg (27.0-32.0); Mean Corpuscular Volume 81.3 fL (80-94); Mean Platelet Vol. 9.9 fl (6.2-12.0); Monocyte# 0.78 X10^3/uL; Monocyte% 6.9 % (0-10); NRBC Flagged by Analyzer 0 % (0-5); Neutrophil # 9.08 X10^3/uL (2.7-7.7); Neutrophil % 80.3 % (47-70); Platelet Count 321 K/mm3 (150-450); RBC Distribution Width CV 12.7 % (11.6-14.6); RBC Distribution Width SD 37.5 fl (35.1-43.9); Red Blood Count 5.23 M/mm3 (4.6-6.2); White Blood Count 11.3 K/mm3 (4.4-11.0)
--- NOTE | 2021-04-30 07:53 | PCM.PN.INT ---
Assessment & Plan Assessment/Plan (1) Pneumonia due to COVID-19 virus: (2) Hypoxia: PLAN: RECOMMENDATIONS: 1. Continue Decadron (05/03/21) and baricitinib (05/08/2021). Completed Remdesivir 2. Diuretics, as needed, to maintain euvolemic state. Dose today if labs allow 3. Awake prone positioning was encouraged. 4. Continue to wean FiO2 to maintain oxygen saturations at or above 90%. 5. Encourage incentive spirometer use and mobilize patient as tolerated. 6. Continue BiPAP with sleep. IMPRESSIONS: 1. Acute hypoxic respiratory failure secondary to COVID-19 pneumonia Continue current supportive measures including remdesivir, Decadron, baricitinib and prophylactic Lovenox. Continue to wean FiO2 to maintain oxygen saturations at or above 90%. CTA showed no evidence for PE. Awake prone positioning was encouraged. Encourage incentive spirometer use and mobilize patient as tolerated. Diuretics can be utilized as needed to maintain euvolemic state. Dose today. Clinical suspicion for worsening oxygen status at night secondary to sleep apnea. Patient did respond well to BiPAP overnight. We will continue this modality with sleep. Anticipate improvement in FiO2 requirements once hydration in Airvo adequate. 2. Diabetes mellitus Continue sliding scale insulin coverage. 3. Unvaccinated status/hypertension/hyperlipidemia/obesity Complicates care, management, recovery and prognosis. Okay to continue with baseline medications. This note was generated with [employer] dictation software. It may contain incorrect words, spelling, and punctuation that were not noted in checking the note before signing. Subjective Subjective Patient did okay overnight. Patient was able to wear the BiPAP from 11 PM to approximately 7 AM. Patient states he was placed on Airvo at 7 AM and then started to have significant burning of his nose. Patient was subsequently found to be out of hydration. Patient did report some relief with using nasal spray. Oxygen did have to be increased to 80%, but patient attributed this to having to pull the Airvo off his nose frequently secondary to burning. Patient subjectively feels improved from a breathing standpoint otherwise. Objective Data Objective Data Vital Signs: Vital Signs Temp Pulse Resp BP Pulse Ox 36.6 C 85 18 103/65 95 04/30/21 03:21 04/30/21 03:21 04/30/21 03:21 04/30/21 03:04/30/21 06:51 Oxygen Flow Rate (L/min) [At 8 REST with Oxygen] Oxygen Flow Rate (L/min) [ 8 AMBULATING with Oxygen #2] Oxygen Flow Rate (L/min) [ 6 AMBULATING with Oxygen #1] Oxygen Flow Rate (L/min) 55 Oxygen Delivery Method Bi-pap Weight: 114 kg Body Mass Index (BMI) 35.4 Intake & Output: Intake and Output for Last 24 Hours 04/28/21 04/29/21 04/30/21 23:59 23:59 23:59 Intake Total 50 / 50 300 / 300 300 / 300 Output Total 400 / 400 2825 / 2825 775 / 775 Balance -350 / -350 -2525 / -2525 -475 / -475 Lab / Micro Data Result Diagrams: 04/30/21 07:17 04/29/21 07:20 Labs: Laboratory Results - last 24 hr 04/29/21 06:39: POC Glucose 151 H 04/29/21 07:20: Sodium 131 L, Potassium 3.9, Chloride 94 L, Carbon Dioxide 29.0, Anion Gap 8, BUN 16, Creatinine 0.85, Estim Creat Clear Calc 114.12, Est GFR (MDRD) Af Amer 123, Est GFR (MDRD) Non-Af 101, BUN/Creatinine Ratio 18.8, Glucose 144 H, Calcium 8.9, Total Bilirubin 0.60, AST 16, ALT 31, Alkaline Phosphatase 39 L, Total Protein 6.4, Albumin 2.4 L, Globulin 4.0, Albumin/Globulin Ratio 0.6 L 04/29/21 12:20: POC Glucose 193 H 04/29/21 15:08: POC Glucose 297 H 04/29/21 21:05: POC Glucose 270 H 04/30/21 06:47: POC Glucose 119 H 04/30/21 07:17: WBC 11.3 H, RBC 5.23, Hgb 13.8, Hct 42.5, MCV 81.3, MCH 26.4 L, MCHC 32.5, RDW Std Deviation 37.5, RDW Coeff of Julián 12.7, Plt Count 321, MPV 9.9, Immature Gran % (Auto) 1.900 H, Neut % (Auto) 80.3 H, Lymph % (Auto) 9.3 L, [place] % (Auto) 6.9, Eos % (Auto) 1.3, Baso % (Auto) 0.3, Absolute Neuts (auto) 9.1 H, Absolute Lymphs (auto) 1.05, Nucleated RBC % 0 Micro: Microbiology 04/26/21 08:10 Sputum, Expectorated/Coughed Gram Stain - Final 04/26/21 08:10 Sputum, Expectorated/Coughed Respiratory Culture - Final 04/23/21 06:20 Urine, Random Legionella Antigen - Final 04/23/21 06:20 Urine, Random Streptococcus pneumoniae Antigen (M - Final 04/23/21 03:33 Mucosa - Nasopharyngeal Respiratory Panel (PCR) - Final Physical Exam Const alert, oriented x3 and no apparent distress Constitutional Narrative: Sitting in bed Nutritional Appearance: obese HEENT normocephalic, head/scalp atraumatic and moist oral mucous membranes HEENT Narrative: No epistaxis noted Eyes PERRL, EOMs intact bilaterally and conjunctivae normal Neck supple General: trachea midline Chest inspection of chest normal Chest: symmetrical chest wall rise; Negative for crepitus Resp normal respiratory effort Auscultation: rhonchi throughout (Improves with coughing) and diminished lung sounds; Negative for rales or wheezes Cardio regular rate and regular rhythm GI normal to inspection, nondistended, normoactive bowel sounds Extremity no clubbing, cyanosis or edema Skin no rashes or lesions noted Neuro CN's II-XII intact bilaterally, moves all extremities and no focal motor deficits Psych cooperative and affect normal Charges/Coding Visit Charges Inpatient E&M: 91421 Subs Hosp L3
[2021-04-30 08:23] LABS: ALB/GLOB Ratio 0.6 RATIO (0.9-2.4); AST(SGOT) 15 U/L (15-37); Alanine Aminotransfer ALT/SGPT 31 U/L (16-61); Albumin, Serum 2.5 g/dL (3.2-5.0); Alkaline Phosphatase 41 U/L (45-117); Anion Gap 6 (5-15); BUN 15 mg/dL (7-18); BUN/Creat Ratio 16.6 RATIO (10-20); Calcium,Total 8.7 mg/dL (8.5-10.1); Chloride 95 mmol/L (98-107); EST Glomerular Filtration Rate 94 mL/min (>60); Est Glom Filt Rate - Afr Amer 114 mL/min (>60); Estimated Creatinine Clearance 107.78 ml/min; Globulin 4.4 g/dL (2.2-4.2); Glucose 111 mg/dL (74-106); Potassium 4.1 mmol/L (3.5-5.1); Protein, Total 6.9 g/dL (6.4-8.2); Sodium Level 132 mmol/L (136-145)
[2021-04-30] MEDS: 0.9% Saline Lock 10 ML Syringe IV (09:57)
[2021-04-30] MEDS: Furosemide 40 MG/4 ML Vial IV (09:57)
[2021-04-30] MEDS: dexAMETHasone 4 MG Tablet 6 MG PO (09:58)
[2021-04-30] MEDS: Enoxaparin 30 MG/0.3 ML Syringe SC ×2 (09:58→21:47)
[2021-04-30] MEDS: hydroCHLOROthiazide 12.5mg 12.5 MG PO (09:59)
[2021-04-30] MEDS: Ascorbic Acid 500 MG Tablet 1000 MG PO ×2 (09:59→21:47)
[2021-04-30] MEDS: guaiFENesin 1,200 MG Tablet 1200 MG PO ×2 (09:59→21:57)
[2021-04-30] MEDS: Lisinopril 20 MG Tablet PO (10:00)
[2021-04-30] MEDS: Pantoprazole Sodium 40 MG Tablet PO (10:00)
--- NOTE | 2021-04-30 11:00 | PCM.PN.HOSP ---
Subjective Subjective Patient is a 50-year-old gentleman unvaccinated against Covid presented with progressive shortness of breath diagnosed with acute hypoxic respiratory failure secondary to COVID-19 pneumonia Objective Data Objective Data Vital Signs: Vital Signs Temp Pulse Resp BP Pulse Ox 98.6 F 98 20 H 101/62 96 04/30/21 09:53 04/30/21 09:53 04/30/21 09:53 04/30/21 09:53 04/30/21 09:53 Oxygen Flow Rate (L/min) [At 8 REST with Oxygen] Oxygen Flow Rate (L/min) [ 8 AMBULATING with Oxygen #2] Oxygen Flow Rate (L/min) [ 6 AMBULATING with Oxygen #1] Oxygen Flow Rate (L/min) 55 Oxygen Delivery Method Airvo Weight: 114 kg Body Mass Index (BMI) 35.4 Intake & Output: Intake and Output for Last 24 Hours 04/28/21 04/29/21 04/30/21 23:59 23:59 23:59 Intake Total 50 / 50 300 / 300 300 / 300 Output Total 400 / 400 2825 / 2825 775 / 775 Balance -350 / -350 -2525 / -2525 -475 / -475 Lab / Micro Data Result Diagrams: 04/30/21 07:17 04/30/21 07:17 Labs: Laboratory Results - last 24 hr 04/29/21 06:39: POC Glucose 151 H 04/29/21 12:20: POC Glucose 193 H 04/29/21 15:08: POC Glucose 297 H 04/29/21 21:05: POC Glucose 270 H 04/30/21 06:47: POC Glucose 119 H 04/30/21 07:17: WBC 11.3 H, RBC 5.23, Hgb 13.8, Hct 42.5, MCV 81.3, MCH 26.4 L, MCHC 32.5, RDW Std Deviation 37.5, RDW Coeff of Julián 12.7, Plt Count 321, MPV 9.9, Immature Gran % (Auto) 1.900 H, Neut % (Auto) 80.3 H, Lymph % (Auto) 9.3 L, [place] % (Auto) 6.9, Eos % (Auto) 1.3, Baso % (Auto) 0.3, Absolute Neuts (auto) 9.1 H, Absolute Lymphs (auto) 1.05, Nucleated RBC % 0 04/30/21 07:17: Sodium 132 L, Potassium 4.1, Chloride 95 L, Carbon Dioxide 31.0, Anion Gap 6, BUN 15, Creatinine 0.90, Estim Creat Clear Calc 107.78, Est GFR (MDRD) Af Amer 114, Est GFR (MDRD) Non-Af 94, BUN/Creatinine Ratio 16.6, Glucose 111 H, Calcium 8.7, Total Bilirubin 0.50, AST 15, ALT 31, Alkaline Phosphatase 41 L, Total Protein 6.9, Albumin 2.5 L, Globulin 4.4 H, Albumin/Globulin Ratio 0.6 L Micro: Microbiology 04/26/21 08:10 Sputum, Expectorated/Coughed Gram Stain - Final 04/26/21 08:10 Sputum, Expectorated/Coughed Respiratory Culture - Final 04/23/21 06:20 Urine, Random Legionella Antigen - Final 04/23/21 06:20 Urine, Random Streptococcus pneumoniae Antigen (M - Final 04/23/21 03:33 Mucosa - Nasopharyngeal Respiratory Panel (PCR) - Final Physical Exam Narrative GENERAL: cooperative, dyspneic at rest HEENT: Atraumatic; EYES; Anicteric, Normal Conjunctiva NECK; supple, normal thyroid, RESPIRATORY: Diminished to auscultation CARDIOVASCULAR: Regular S1 S2, GI: soft, normoactive bowel sounds, : No Renal angle tenderness; EXTREMITIES: No edema, no clubbing, MUSCULOSKELETAL: no muscle waisting NEURO: Awake; no lateralizing signs. SKIN: No Rash PSYCH; Flat affect Assessment & Plan Assessment/Plan (1) Pneumonia due to COVID-19 virus: (2) Hypoxia: PLAN: Patient is a 50-year-old gentleman unvaccinated against Covid presented with progressive shortness of breath diagnosed with acute hypoxic respiratory failure secondary to COVID-19 pneumonia 1. Acute hypoxic respiratory failure ?Secondary to COVID-19 pneumonia. Patient has completed a course of remdesivir however remains on Decadron and baricitinib. Patient has been seen in consultation by both pulmonary medicine as well as infectious disease; Patient still requiring high flow oxygen with Vapotherm.. 2. Diabetes mellitus type II -patient's oral hypoglycemics held. Placed on long acting insulin, Accu-Cheks a.c. and at bedtime and covered with sliding scale insulin 3. Hypertension - Blood pressure controlled, home medications continued with dose adjustment as needed 4. Obesity with BMI of 34.2 ?Weight loss advised 5. DVT prophylaxis ?Lovenox Charges/Coding Visit Charges Inpatient E&M: 66102 Subs Hosp L2
[2021-04-30] MEDS: Insulin Lispro 100 UNIT/ML INSULN.PEN SC ×3 (12:00→21:49)
--- NOTE | 2021-04-30 12:57 | PN.ID_ITS ---
Physical Exam Narrative Feeling better, no fever, improved breathing, no n/v/d. Const alert General Appearance: cooperative Resp clear to auscultation bilaterally Auscultation: diminished lung sounds Cardio regular rate and regular rhythm GI normal to inspection, nondistended, normoactive bowel sounds Extremity no clubbing, cyanosis or edema Skin no rashes or lesions noted ID ID: Route of nutrition/ use of supplements: [] Nutritional Intake: [] IV Site: [] Rodriguez Catheter: [] Assessment & Plan Assessment/Plan (1) Pneumonia due to COVID-19 virus: PLAN: Sx started 04/16/21. Unvaccinated. Isolate for 20 days until 05/06/21. Recommend vaccine once out of iso and out of hospital. On dex, b aricitinib, completed remdesivir. Will follow (2) Hypoxia:
[2021-04-30 14:11] LABS: Bedside Glucose 313 mg/dL (70-110)
[2021-04-30 16:16] LABS: Bedside Glucose 370 mg/dL (70-110)
[2021-04-30 22:45] LABS: Bedside Glucose 253 mg/dL (70-110)
[2021-05-01] VITALS (15 sets, daily range): BP systolic 107–117; BP diastolic 69–78; PULSE 58–96; RESP 14–33; TEMP 36.5–36.9; O2SAT 91–99
[2021-05-01 06:51] LABS: Bedside Glucose 116 mg/dL (70-110)
--- NOTE | 2021-05-01 07:37 | PN.HOSP_ITS ---
Subjective Subjective Patient seen, appears stable at rest, still on vapotherm with oxygen sat in the low 90s Objective Data Objective Data Vital Signs: Vital Signs Temp Pulse Resp BP Pulse Ox 98.4 F 87 18 117/78 97 05/01/21 06:00 05/01/21 06:00 05/01/21 06:00 05/01/21 06:00 05/01/21 06:00 Oxygen Flow Rate (L/min) [At 8 REST with Oxygen] Oxygen Flow Rate (L/min) [ 8 AMBULATING with Oxygen #2] Oxygen Flow Rate (L/min) [ 6 AMBULATING with Oxygen #1] Oxygen Flow Rate (L/min) 55 Oxygen Delivery Method Airvo Weight: 111.7 kg Body Mass Index (BMI) 35.4 Intake & Output: Intake and Output for Last 24 Hours 04/29/21 04/30/21 05/01/21 23:59 23:59 23:59 Intake Total 300 / 300 1050 / 1050 Output Total 2825 / 2825 975 / 975 Balance -2525 / -2525 75 / 75 Lab / Micro Data Result Diagrams: 05/01/21 07:55 05/01/21 07:55 Labs: Laboratory Results - last 24 hr 04/30/21 07:17: WBC 11.3 H, RBC 5.23, Hgb 13.8, Hct 42.5, MCV 81.3, MCH 26.4 L, MCHC 32.5, RDW Std Deviation 37.5, RDW Coeff of Julián 12.7, Plt Count 321, MPV 9.9 , Immature Gran % (Auto) 1.900 H, Neut % (Auto) 80.3 H, Lymph % (Auto) 9.3 L, [place] % (Auto) 6.9, Eos % (Auto) 1.3, Baso % (Auto) 0.3, Absolute Neuts (auto) 9.1 H, Absolute Lymphs (auto) 1.05, Nucleated RBC % 0 04/30/21 07:17: Sodium 132 L, Potassium 4.1, Chloride 95 L, Carbon Dioxide 31.0, Anion Gap 6, BUN 15, Creatinine 0.90, Estim Creat Clear Calc 107.78, Est GFR (MDRD) Af Amer 114, Est GFR (MDRD) Non-Af 94, BUN/Creatinine Ratio 16.6, Glucose 111 H, Calcium 8.7, Total Bilirubin 0.50, AST 15, ALT 31, Alkaline Phosphatase 41 L, Total Protein 6.9, Albumin 2.5 L, Globulin 4.4 H, Albumin/Globulin Ratio 0.6 L 04/30/21 11:57: POC Glucose 313 H 04/30/21 15:59: POC Glucose 370 H 04/30/21 21:41: POC Glucose 253 H 05/01/21 06:33: POC Glucose 116 H Micro: Microbiology 04/26/21 08:10 Sputum, Expectorated/Coughed Gram Stain - Final 04/26/21 08:10 Sputum, Expectorated/Coughed Respiratory Culture - Final 04/23/21 06:20 Urine, Random Legionella Antigen - Final 04/23/21 06:20 Urine, Random Streptococcus pneumoniae Antigen (M - Final 04/23/21 03:33 Mucosa - Nasopharyngeal Respiratory Panel (PCR) - Final Physical Exam Narrative GENERAL: cooperative, dyspneic at rest HEENT: Atraumatic; EYES; Anicteric, Normal Conjunctiva NECK; supple, normal thyroid, RESPIRATORY: Diminished to auscultation CARDIOVASCULAR: Regular S1 S2, GI: soft, normoactive bowel sounds, : No Renal angle tenderness; EXTREMITIES: No edema, no clubbing, MUSCULOSKELETAL: no muscle waisting NEURO: Awake; no lateralizing signs. SKIN: No Rash PSYCH; Flat affect Assessment & Plan Assessment/Plan (1) Pneumonia due to COVID-19 virus: (2) Hypoxia: PLAN: Patient is a 50-year-old gentleman unvaccinated against Covid presented with progressive shortness of breath diagnosed with acute hypoxic respiratory failure secondary to COVID-19 pneumonia 1. Acute hypoxic respiratory failure ?Secondary to COVID-19 pneumonia. Patient has completed a course of remdesivir however remains on Decadron and baricitinib. Patient has been seen in consultation by both pulmonary medicine as well as infectious disease; Patient still requiring high flow oxygen with Vapotherm. 05/01/2021; Patient seen, appears stable at rest, still on vapotherm with oxygen sat in the low 90s 2. Diabetes mellitus type II -patient's oral hypoglycemics held. Placed on long acting insulin, Accu-Cheks a.c. and at bedtime and covered with sliding scale insulin 3. Hypertension - Blood pressure controlled, home medications continued with dose adjustment as needed 4. Obesity with BMI of 34.2 ?Weight loss advised 5. DVT prophylaxis ?Lovenox Charges/Coding Visit Charges Inpatient E&M: 95705 Subs Hosp L2
[2021-05-01 08:17] LABS: Absolute Lymphocyte Count 0.81 X10^3/uL (0.83-4.51); Absolute Neutrophil Count 13.1 X10^3/uL (2.0-7.7); Basophil# 0.03 X10^3/uL; Basophil% 0.2 % (0-1); Eosinophil# 0.21 X10^3/uL; Eosinophils% 1.4 % (0-5); Hematocrit 40.6 % (40-54); Hemoglobin 13.4 g/dL (13.0-16.5); Lymphocyte # 0.81 X10^3/ul (0.83-4.51); Lymphocyte % 5.2 % (19-41); Mean Corpuscular Hgb 26.7 pg (27.0-32.0); Mean Platelet Vol. 10.1 fl (6.2-12.0); Monocyte# 1.06 X10^3/uL; Monocyte% 6.9 % (0-10); NRBC Flagged by Analyzer 0 % (0-5); Neutrophil # 13.11 X10^3/uL (2.7-7.7); Neutrophil % 84.8 % (47-70); Platelet Count 341 K/mm3 (150-450); RBC Distribution Width CV 12.9 % (11.6-14.6); RBC Distribution Width SD 37.9 fl (35.1-43.9); Red Blood Count 5.01 M/mm3 (4.6-6.2); White Blood Count 15.5 K/mm3 (4.4-11.0)
[2021-05-01 08:55] LABS: ALB/GLOB Ratio 0.6 RATIO (0.9-2.4); AST(SGOT) 14 U/L (15-37); Alanine Aminotransfer ALT/SGPT 32 U/L (16-61); Albumin, Serum 2.5 g/dL (3.2-5.0); Alkaline Phosphatase 41 U/L (45-117); Anion Gap 8 (5-15); BUN 19 mg/dL (7-18); BUN/Creat Ratio 20.3 RATIO (10-20); Calcium,Total 8.5 mg/dL (8.5-10.1); Chloride 95 mmol/L (98-107); Creatinine, Serum 0.94 mg/dL (0.70-1.30); EST Glomerular Filtration Rate 90 mL/min (>60); Est Glom Filt Rate - Afr Amer 109 mL/min (>60); Estimated Creatinine Clearance 103.19 ml/min; Globulin 4.5 g/dL (2.2-4.2); Glucose 165 mg/dL (74-106); Magnesium 2.1 mg/dL (1.6-2.6); Potassium 3.8 mmol/L (3.5-5.1); Sodium Level 132 mmol/L (136-145)
[2021-05-01] MEDS: dexAMETHasone 4 MG Tablet 6 MG PO (10:47)
[2021-05-01] MEDS: Enoxaparin 30 MG/0.3 ML Syringe SC ×2 (10:48→23:08)
[2021-05-01] MEDS: hydroCHLOROthiazide 12.5mg 12.5 MG PO (10:48)
[2021-05-01] MEDS: guaiFENesin 1,200 MG Tablet 1200 MG PO ×2 (10:49→23:10)
[2021-05-01] MEDS: Ascorbic Acid 500 MG Tablet 1000 MG PO ×2 (10:49→23:10)
[2021-05-01] MEDS: Pantoprazole Sodium 40 MG Tablet PO (10:49)
[2021-05-01] MEDS: Lisinopril 20 MG Tablet PO (10:50)
[2021-05-01] MEDS: Insulin Lispro 100 UNIT/ML INSULN.PEN SC ×3 (10:54→23:10)
[2021-05-01 11:15] LABS: Bedside Glucose 283 mg/dL (70-110)
--- NOTE | 2021-05-01 16:24 | PCM.PN.INT ---
Assessment & Plan Assessment/Plan (1) Pneumonia due to COVID-19 virus: (2) Hypoxia: PLAN: RECOMMENDATIONS: 1. Continue Decadron (05/03/21) and baricitinib (05/08/2021). Completed Remdesivir 2. Diuretics, as needed, to maintain euvolemic state. Possibly dose tomorrow 3. Awake prone positioning was encouraged. 4. Continue to wean FiO2 to maintain oxygen saturations at or above 90%. 5. Encourage incentive spirometer use and mobilize patient as tolerated. 6. Continue BiPAP with sleep. Will need outpatient evaluation for GABY IMPRESSIONS: 1. Acute hypoxic respiratory failure secondary to COVID-19 pneumonia Continue current supportive measures including remdesivir, Decadron, baricitinib and prophylactic Lovenox. Continue to wean FiO2 to maintain oxygen saturations at or above 90%. CTA showed no evidence for PE. Awake prone positioning was encouraged. Encourage incentive spirometer use and mobilize patient as tolerated. Diuretics can be utilized as needed to maintain euvolemic state. Dose again possibly tomorrow. Clinical suspicion for worsening oxygen status at night secondary to sleep apnea. Patient did respond well to BiPAP overnight. We will continue this modality with sleep. Patient will need outpatient work-up for GABY. 2. Diabetes mellitus Continue sliding scale insulin coverage. 3. Unvaccinated status/hypertension/hyperlipidemia/obesity Complicates care, management, recovery and prognosis. Okay to continue with baseline medications. This note was generated with [employer] dictation software. It may contain incorrect words, spelling, and punctuation that were not noted in checking the note before signing. Subjective Subjective Patient has done well over the last 24 hours. Patient has actually been placed on high flow nasal cannula through the afternoon. Patient continues to be compliant with his incentive spirometer and Acapella therapy. Patient is not reporting any chest pain. Patient has not had any change in his sputum. Patient believes the BiPAP is helping him sleep better. Objective Data Objective Data Vital Signs: Vital Signs Temp Pulse Resp BP Pulse Ox 36.9 C 83 18 111/71 93 05/01/21 14:51 05/01/21 14:51 05/01/21 14:51 05/01/21 14:51 05/01/21 15:01 Oxygen Flow Rate (L/min) [At 8 REST with Oxygen] Oxygen Flow Rate (L/min) [ 8 AMBULATING with Oxygen #2] Oxygen Flow Rate (L/min) [ 6 AMBULATING with Oxygen #1] Oxygen Flow Rate (L/min) 13 Oxygen Delivery Method Nasal Cannula Weight: 111.7 kg Body Mass Index (BMI) 35.4 Intake & Output: Intake and Output for Last 24 Hours 04/29/21 04/30/21 05/01/21 23:59 23:59 23:59 Intake Total 300 / 300 1050 / 1050 Output Total 2825 / 2825 975 / 975 Balance -2525 / -2525 75 / 75 Lab / Micro Data Result Diagrams: 05/01/21 07:55 05/01/21 07:55 Labs: Laboratory Results - last 24 hr 04/30/21 21:41: POC Glucose 253 H 05/01/21 06:33: POC Glucose 116 H 05/01/21 07:55: WBC 15.5 H, RBC 5.01, Hgb 13.4, Hct 40.6, MCV 81.0, MCH 26.7 L, MCHC 33.0, RDW Std Deviation 37.9, RDW Coeff of Julián 12.9, Plt Count 341, MPV 10.1, Immature Gran % (Auto) 1.500 H, Neut % (Auto) 84.8 H, Lymph % (Auto) 5.2 L, [place] % (Auto) 6.9, Eos % (Auto) 1.4, Baso % (Auto) 0.2, Absolute Neuts (auto) 13.1 H, Absolute Lymphs (auto) 0.81 L, Nucleated RBC % 0 05/01/21 07:55: Sodium 132 L, Potassium 3.8, Chloride 95 L, Carbon Dioxide 29.0, Anion Gap 8, BUN 19 H, Creatinine 0.94, Estim Creat Clear Calc 103.19, Est GFR (MDRD) Af Amer 109, Est GFR (MDRD) Non-Af 90, BUN/Creatinine Ratio 20.3 H, Glucose 165 H, Calcium 8.5, Magnesium 2.1, Total Bilirubin 0.50, AST 14 L, ALT 32, Alkaline Phosphatase 41 L, Total Protein 7.0, Albumin 2.5 L, Globulin 4.5 H, Albumin/Globulin Ratio 0.6 L 05/01/21 10:53: POC Glucose 283 H Micro: Microbiology 04/26/21 08:10 Sputum, Expectorated/Coughed Gram Stain - Final 04/26/21 08:10 Sputum, Expectorated/Coughed Respiratory Culture - Final 04/23/21 06:20 Urine, Random Legionella Antigen - Final 04/23/21 06:20 Urine, Random Streptococcus pneumoniae Antigen (M - Final 04/23/21 03:33 Mucosa - Nasopharyngeal Respiratory Panel (PCR) - Final Physical Exam Const alert, oriented x3 and no apparent distress Constitutional Narrative: Standing at bedside with nasal cannula in place Nutritional Appearance: obese HEENT normocephalic, head/scalp atraumatic and moist oral mucous membranes HEENT Narrative: No epistaxis noted Eyes PERRL, EOMs intact bilaterally and conjunctivae normal Neck supple General: trachea midline Chest inspection of chest normal Chest: symmetrical chest wall rise; Negative for crepitus Resp normal respiratory effort Auscultation: diminished lung sounds; Negative for rales, rhonchi or wheezes Cardio regular rate and regular rhythm GI normal to inspection, nondistended, normoactive bowel sounds Extremity no clubbing, cyanosis or edema Skin no rashes or lesions noted Neuro CN's II-XII intact bilaterally, moves all extremities and no focal motor deficits Psych cooperative and affect normal Charges/Coding Visit Charges Inpatient E&M: 17787 Subs Hosp L2
[2021-05-01 23:50] LABS: Bedside Glucose 271 mg/dL (70-110)
[2021-05-02] VITALS (10 sets, daily range): BP systolic 93–135; BP diastolic 62–86; PULSE 58–95; RESP 14–28; TEMP 36.4–36.9; O2SAT 90–96
[2021-05-02 00:16] LABS: Bedside Glucose 294 mg/dL (70-110)
[2021-05-02 06:44] LABS: Absolute Lymphocyte Count 0.99 X10^3/uL (0.83-4.51); Absolute Neutrophil Count 8.7 X10^3/uL (2.0-7.7); Basophil# 0.03 X10^3/uL; Basophil% 0.3 % (0-1); Eosinophil# 0.13 X10^3/uL; Eosinophils% 1.2 % (0-5); Hematocrit 41.5 % (40-54); Hemoglobin 13.7 g/dL (13.0-16.5); Lymphocyte # 0.99 X10^3/ul (0.83-4.51); Mean Corpuscular Hgb 26.8 pg (27.0-32.0); Mean Corpuscular Volume 81.2 fL (80-94); Monocyte# 0.87 X10^3/uL; Monocyte% 7.9 % (0-10); NRBC Flagged by Analyzer 0 % (0-5); Neutrophil # 8.73 X10^3/uL (2.7-7.7); Neutrophil % 79.8 % (47-70); Platelet Count 391 K/mm3 (150-450); RBC Distribution Width CV 12.7 % (11.6-14.6); RBC Distribution Width SD 37.4 fl (35.1-43.9); Red Blood Count 5.11 M/mm3 (4.6-6.2)
[2021-05-02 07:08] LABS: ALB/GLOB Ratio 0.6 RATIO (0.9-2.4); AST(SGOT) 12 U/L (15-37); Alanine Aminotransfer ALT/SGPT 34 U/L (16-61); Albumin, Serum 2.6 g/dL (3.2-5.0); Alkaline Phosphatase 45 U/L (45-117); Anion Gap 5 (5-15); BUN 17 mg/dL (7-18); Chloride 95 mmol/L (98-107); EST Glomerular Filtration Rate 95 mL/min (>60); Est Glom Filt Rate - Afr Amer 115 mL/min (>60); Estimated Creatinine Clearance 107.78 ml/min; Globulin 4.7 g/dL (2.2-4.2); Glucose 134 mg/dL (74-106); Potassium 4.1 mmol/L (3.5-5.1); Protein, Total 7.3 g/dL (6.4-8.2); Sodium Level 132 mmol/L (136-145)
[2021-05-02 07:10] LABS: Bedside Glucose 125 mg/dL (70-110)
--- NOTE | 2021-05-02 07:59 | PN.HOSP_ITS ---
Subjective Subjective Patient seen has been weaned off Airvo and is currently on 10 L nasal cannula. Overall clinical condition continues to remain stable Objective Data Objective Data Vital Signs: Vital Signs Temp Pulse Resp BP Pulse Ox 97.9 F 61 16 135/86 H 92 05/02/21 06:25 05/02/21 06:25 05/02/21 06:25 05/02/21 06:25 05/02/21 07:25 Oxygen Flow Rate (L/min) [At 8 REST with Oxygen] Oxygen Flow Rate (L/min) [ 8 AMBULATING with Oxygen #2] Oxygen Flow Rate (L/min) [ 6 AMBULATING with Oxygen #1] Oxygen Flow Rate (L/min) 12 Oxygen Delivery Method Nasal Cannula Weight: 109.497 kg Body Mass Index (BMI) 35.4 Intake & Output: Intake and Output for Last 24 Hours 04/30/21 05/01/21 05/02/21 23:59 23:59 23:59 Intake Total 1050 / 1050 Output Total 975 / 975 100 / 100 Balance 75 / 75 -100 / -100 Lab / Micro Data Result Diagrams: 05/02/21 06:24 05/02/21 06:24 Labs: Laboratory Results - last 24 hr 05/01/21 07:55: WBC 15.5 H, RBC 5.01, Hgb 13.4, Hct 40.6, MCV 81.0, MCH 26.7 L, MCHC 33.0, RDW Std Deviation 37.9, RDW Coeff of Julián 12.9, Plt Count 341, MPV 10.1, Immature Gran % (Auto) 1.500 H, Neut % (Auto) 84.8 H, Lymph % (Auto) 5.2 L , [place] % (Auto) 6.9, Eos % (Auto) 1.4, Baso % (Auto) 0.2, Absolute Neuts (auto) 13.1 H, Absolute Lymphs (auto) 0.81 L, Nucleated RBC % 0 05/01/21 07:55: Sodium 132 L, Potassium 3.8, Chloride 95 L, Carbon Dioxide 29.0, Anion Gap 8, BUN 19 H, Creatinine 0.94, Estim Creat Clear Calc 103.19, Est GFR (MDRD) Af Amer 109, Est GFR (MDRD) Non-Af 90, BUN/Creatinine Ratio 20.3 H, Glucose 165 H, Calcium 8.5, Magnesium 2.1, Total Bilirubin 0.50, AST 14 L, ALT 32, Alkaline Phosphatase 41 L, Total Protein 7.0, Albumin 2.5 L, Globulin 4.5 H, Albumin/Globulin Ratio 0.6 L 05/01/21 10:53: POC Glucose 283 H 05/01/21 16:34: POC Glucose 294 H 05/01/21 23:04: POC Glucose 271 H 05/02/21 06:21: POC Glucose 125 H 05/02/21 06:24: WBC 11.0, RBC 5.11, Hgb 13.7, Hct 41.5, MCV 81.2, MCH 26.8 L, MCHC 33.0, RDW Std Deviation 37.4, RDW Coeff of Julián 12.7, Plt Count 391, MPV 10.0, Immature Gran % (Auto) 1.800 H, Neut % (Auto) 79.8 H, Lymph % (Auto) 9.0 L , [place] % (Auto) 7.9, Eos % (Auto) 1.2, Baso % (Auto) 0.3, Absolute Neuts (auto) 8.7 H, Absolute Lymphs (auto) 0.99, Nucleated RBC % 0 05/02/21 06:24: Sodium 132 L, Potassium 4.1, Chloride 95 L, Carbon Dioxide 32.0, Anion Gap 5, BUN 17, Creatinine 0.90, Estim Creat Clear Calc 107.78, Est GFR (MDRD) Af Amer 115, Est GFR (MDRD) Non-Af 95, BUN/Creatinine Ratio 19.0, Glucose 134 H, Calcium 9.0, Total Bilirubin 0.40, AST 12 L, ALT 34, Alkaline Phosphatase 45, Total Protein 7.3, Albumin 2.6 L, Globulin 4.7 H, Albumin/Globulin Ratio 0.6 L Micro: Microbiology 04/26/21 08:10 Sputum, Expectorated/Coughed Gram Stain - Final 04/26/21 08:10 Sputum, Expectorated/Coughed Respiratory Culture - Final 04/23/21 06:20 Urine, Random Legionella Antigen - Final 04/23/21 06:20 Urine, Random Streptococcus pneumoniae Antigen (M - Final 04/23/21 03:33 Mucosa - Nasopharyngeal Respiratory Panel (PCR) - Final Physical Exam Narrative GENERAL: cooperative, HEENT: Atraumatic; EYES; Anicteric, Normal Conjunctiva NECK; supple, normal thyroid, RESPIRATORY: Diminished to auscultation CARDIOVASCULAR: Regular S1 S2, GI: soft, normoactive bowel sounds, : No Renal angle tenderness; EXTREMITIES: No edema, no clubbing, MUSCULOSKELETAL: no muscle waisting NEURO: Awake; no lateralizing signs. SKIN: No Rash PSYCH; Flat affect Assessment & Plan Assessment/Plan (1) Pneumonia due to COVID-19 virus: (2) Hypoxia: PLAN: Patient is a 50-year-old gentleman unvaccinated against Covid presented with progressive shortness of breath diagnosed with acute hypoxic respiratory failure secondary to COVID-19 pneumonia 1. Acute hypoxic respiratory failure ?Secondary to COVID-19 pneumonia. Patient has completed a course of remdesivir however remains on Decadron and baricitinib. Patient has been seen in consultation by both pulmonary medicine as well as infectious disease; Patient still requiring high flow oxygen with Vapotherm. 05/01/2021; Patient seen, appears stable at rest, still on vapotherm with oxygen sat in the low 90s 05/02/2021; Patient seen has been weaned off Airvo and is currently on 10 L nasal cannula. Overall clinical condition continues to remain stable 2. Diabetes mellitus type II -patient's oral hypoglycemics held. Placed on long acting insulin, Accu-Cheks a.c. and at bedtime and covered with sliding scale insulin 3. Hypertension - Blood pressure controlled, home medications continued with dose adjustment as needed 4. Obesity with BMI of 34.2 ?Weight loss advised 5. DVT prophylaxis ?Lovenox Charges/Coding Visit Charges Inpatient E&M: 81779 Subs Hosp L2
[2021-05-02] MEDS: hydroCHLOROthiazide 12.5mg 12.5 MG PO (08:54)
[2021-05-02] MEDS: Ascorbic Acid 500 MG Tablet 1000 MG PO ×2 (08:54→21:44)
[2021-05-02] MEDS: guaiFENesin 1,200 MG Tablet 1200 MG PO ×2 (08:55→21:48)
[2021-05-02] MEDS: Lisinopril 20 MG Tablet PO (08:55)
[2021-05-02] MEDS: Pantoprazole Sodium 40 MG Tablet PO (08:55)
[2021-05-02] MEDS: dexAMETHasone 4 MG Tablet 6 MG PO (08:56)
[2021-05-02] MEDS: Enoxaparin 30 MG/0.3 ML Syringe SC ×2 (08:56→21:44)
[2021-05-02] MEDS: Insulin Lispro 100 UNIT/ML INSULN.PEN SC ×3 (11:29→21:45)
[2021-05-02 11:51] LABS: Bedside Glucose 248 mg/dL (70-110)
--- NOTE | 2021-05-02 14:00 | PCM.PN.INT ---
Assessment & Plan Assessment/Plan (1) Pneumonia due to COVID-19 virus: (2) Hypoxia: PLAN: RECOMMENDATIONS: 1. Continue Decadron (05/03/21) and baricitinib (05/08/2021). 2. Diuretics, as needed, to maintain euvolemic state. 3. Awake prone positioning was encouraged. 4. Continue to wean supplemental oxygen to maintain saturations at or above 90%. 5. Encourage incentive spirometer use and mobilize patient as tolerated. 6. Continue BiPAP with sleep. Will need outpatient evaluation for GABY IMPRESSIONS: 1. Acute hypoxic respiratory failure secondary to COVID-19 pneumonia Continue current supportive measures including Decadron and baricitinib. The patient has completed a treatment course of remdesivir. CTA showed no evidence for PE. Therefore, prophylactic dosing of Lovenox will be continued. Continue to wean supplemental oxygen to maintain saturations at or above 90%. Encourage incentive spirometer use and mobilize patient as tolerated. Diuretics can be utilized as needed to maintain euvolemic state. 2. Diabetes mellitus Continue sliding scale insulin coverage. 3. Unvaccinated status/hypertension/hyperlipidemia/obesity/suspected sleep apnea Complicates care, management, recovery and prognosis. Okay to continue with baseline medications. Recommend outpatient evaluation for sleep apnea. This note was generated with [employer] dictation software. It may contain incorrect words, spelling, and punctuation that were not noted in checking the note before signing. Subjective Subjective The patient was seen and examined at the bedside this morning. Events from the last 24 hours have been reviewed. The patient is currently afebrile, hemodynamically stable and maintaining appropriate oxygen saturations on 12 L/min high flow cannula. The patient is currently documented to be overall net -1.9 L for the hospitalization. He remains on twice daily Lovenox, Decadron and baricitinib. Renal function is stable. Objective Data Objective Data The patient's most recent lab work, culture data and imaging studies have all been personally reviewed. Respiratory viral panel was negative. Strep and urine Legionella antigens were negative. Vital Signs: Vital Signs Temp Pulse Resp BP Pulse Ox 97.6 F L 83 18 93/62 93 05/02/21 11:33 05/02/21 11:33 05/02/21 11:33 05/02/21 11:33 05/02/21 11:33 Oxygen Flow Rate (L/min) [At 8 REST with Oxygen] Oxygen Flow Rate (L/min) [ 8 AMBULATING with Oxygen #2] Oxygen Flow Rate (L/min) [ 6 AMBULATING with Oxygen #1] Oxygen Flow Rate (L/min) 13 Oxygen Delivery Method High Flow Weight: 109.497 kg Body Mass Index (BMI) 35.4 Intake & Output: Intake and Output for Last 24 Hours 04/30/21 05/01/21 05/02/21 23:59 23:59 23:59 Intake Total 1050 / 1050 350 / 350 Output Total 975 / 975 100 / 100 Balance 75 / 75 250 / 250 Lab / Micro Data Attestation: I reviewed the patient's lab results. Result Diagrams: 05/02/21 06:24 05/02/21 06:24 Labs: Laboratory Results - last 24 hr 05/01/21 16:34: POC Glucose 294 H 05/01/21 23:04: POC Glucose 271 H 05/02/21 06:21: POC Glucose 125 H 05/02/21 06:24: WBC 11.0, RBC 5.11, Hgb 13.7, Hct 41.5, MCV 81.2, MCH 26.8 L, MCHC 33.0, RDW Std Deviation 37.4, RDW Coeff of Julián 12.7, Plt Count 391, MPV 10.0, Immature Gran % (Auto) 1.800 H, Neut % (Auto) 79.8 H, Lymph % (Auto) 9.0 L, [place] % (Auto) 7.9, Eos % (Auto) 1.2, Baso % (Auto) 0.3, Absolute Neuts (auto) 8.7 H, Absolute Lymphs (auto) 0.99, Nucleated RBC % 0 05/02/21 06:24: Sodium 132 L, Potassium 4.1, Chloride 95 L, Carbon Dioxide 32.0, Anion Gap 5, BUN 17, Creatinine 0.90, Estim Creat Clear Calc 107.78, Est GFR (MDRD) Af Amer 115, Est GFR (MDRD) Non-Af 95, BUN/Creatinine Ratio 19.0, Glucose 134 H, Calcium 9.0, Total Bilirubin 0.40, AST 12 L, ALT 34, Alkaline Phosphatase 45, Total Protein 7.3, Albumin 2.6 L, Globulin 4.7 H, Albumin/Globulin Ratio 0.6 L 05/02/21 11:28: POC Glucose 248 H Micro: Microbiology 04/26/21 08:10 Sputum, Expectorated/Coughed Gram Stain - Final 04/26/21 08:10 Sputum, Expectorated/Coughed Respiratory Culture - Final 04/23/21 06:20 Urine, Random Legionella Antigen - Final 04/23/21 06:20 Urine, Random Streptococcus pneumoniae Antigen (M - Final 04/23/21 03:33 Mucosa - Nasopharyngeal Respiratory Panel (PCR) - Final Physical Exam Const alert, oriented x3 and no apparent distress Constitutional Narrative: Sitting in bedside recliner. Nutritional Appearance: obese HEENT normocephalic, head/scalp atraumatic and moist oral mucous membranes Eyes PERRL, EOMs intact bilaterally and conjunctivae normal Neck supple General: trachea midline Chest inspection of chest normal Resp Auscultation: diminished lung sounds Cardio regular rate and regular rhythm GI normal to inspection, nondistended, normoactive bowel sounds Extremity no clubbing, cyanosis or edema Skin no rashes or lesions noted Neuro CN's II-XII intact bilaterally, moves all extremities and no focal motor deficits Psych cooperative and affect normal Charges/Coding Visit Charges Inpatient E&M: 41446 Subs Hosp L2
[2021-05-02 18:31] LABS: Bedside Glucose 334 mg/dL (70-110)
[2021-05-02 22:11] LABS: Bedside Glucose 301 mg/dL (70-110)
[2021-05-03] VITALS (10 sets, daily range): BP systolic 90–139; BP diastolic 55–95; PULSE 60–99; RESP 14–25; TEMP 36.4–36.6; O2SAT 90–98
[2021-05-03] MEDS: Insulin Lispro 100 UNIT/ML INSULN.PEN SC ×4 (06:14→22:12)
[2021-05-03 06:35] LABS: Bedside Glucose 150 mg/dL (70-110)
--- NOTE | 2021-05-03 07:12 | PCM.PN.INT ---
Assessment & Plan Assessment/Plan (1) Pneumonia due to COVID-19 virus: (2) Hypoxia: PLAN: RECOMMENDATIONS: 1. Continue Decadron (05/03/21) and baricitinib (05/08/2021). 2. Diuretics, as needed, to maintain euvolemic state. 3. Awake prone positioning was encouraged. 4. Continue to wean supplemental oxygen to maintain saturations at or above 90%. 5. Encourage incentive spirometer use and mobilize patient as tolerated. 6. Continue BiPAP with sleep. Will need outpatient evaluation for GABY IMPRESSIONS: 1. Acute hypoxic respiratory failure secondary to COVID-19 pneumonia Continue current supportive measures including Decadron and baricitinib. The patient has completed a treatment course of remdesivir. CTA showed no evidence for PE. Therefore, prophylactic dosing of Lovenox will be continued. Continue to wean supplemental oxygen to maintain saturations at or above 90%. Encourage incentive spirometer use and mobilize patient as tolerated. Diuretics can be utilized as needed to maintain euvolemic state. 2. Diabetes mellitus Continue sliding scale insulin coverage. 3. Unvaccinated status/hypertension/hyperlipidemia/obesity/suspected sleep apnea Complicates care, management, recovery and prognosis. Okay to continue with baseline medications. Recommend outpatient evaluation for sleep apnea. This note was generated with [email or web address] dictation software. It may contain incorrect words, spelling, and punctuation that were not noted in checking the note before signing. Subjective Subjective The patient was seen and examined at the bedside this morning. Events from the last 24 hours have been reviewed. The patient is currently afebrile, hemodynamically stable and maintaining appropriate oxygen saturations on 10 L/min high flow cannula. The patient is currently documented to be overall net -2.2 L for the hospitalization. He remains on twice daily Lovenox, Decadron and baricitinib. The patient is without any specific complaints this morning. Objective Data Objective Data The patient's most recent lab work, culture data and imaging studies have all been personally reviewed. Respiratory viral panel was negative. Strep and urine Legionella antigens were negative. Vital Signs: Vital Signs Temp Pulse Resp BP Pulse Ox 97.7 F L 62 16 121/95 H 95 05/03/21 06:00 05/03/21 06:00 05/03/21 06:00 05/03/21 06:00 05/03/21 06:00 Oxygen Flow Rate (L/min) [At 8 REST with Oxygen] Oxygen Flow Rate (L/min) [ 8 AMBULATING with Oxygen #2] Oxygen Flow Rate (L/min) [ 6 AMBULATING with Oxygen #1] Oxygen Flow Rate (L/min) 12 Oxygen Delivery Method High Flow Weight: 110 kg Body Mass Index (BMI) 35.4 Intake & Output: Intake and Output for Last 24 Hours 05/01/21 05/02/21 05/03/21 23:59 23:59 23:59 Intake Total 850 / 850 Output Total 900 / 900 Balance -50 / -50 Lab / Micro Data Attestation: I reviewed the patient's lab results. Result Diagrams: 05/03/21 07:15 05/03/21 07:15 Labs: Laboratory Results - last 24 hr 05/02/21 11:28: POC Glucose 248 H 05/02/21 17:09: POC Glucose 334 H 05/02/21 21:41: POC Glucose 301 H 05/03/21 06:13: POC Glucose 150 H Micro: Microbiology 04/26/21 08:10 Sputum, Expectorated/Coughed Gram Stain - Final 04/26/21 08:10 Sputum, Expectorated/Coughed Respiratory Culture - Final 04/23/21 06:20 Urine, Random Legionella Antigen - Final 04/23/21 06:20 Urine, Random Streptococcus pneumoniae Antigen (M - Final 04/23/21 03:33 Mucosa - Nasopharyngeal Respiratory Panel (PCR) - Final Physical Exam Const alert, oriented x3 and no apparent distress Constitutional Narrative: Sitting in bedside recliner. Nutritional Appearance: obese HEENT normocephalic, head/scalp atraumatic and moist oral mucous membranes Eyes PERRL, EOMs intact bilaterally and conjunctivae normal Neck supple General: trachea midline Chest inspection of chest normal Resp Auscultation: diminished lung sounds Cardio regular rate and regular rhythm GI normal to inspection, nondistended, normoactive bowel sounds Extremity no clubbing, cyanosis or edema Skin no rashes or lesions noted Neuro CN's II-XII intact bilaterally, moves all extremities and no focal motor deficits Psych cooperative and affect normal Charges/Coding Visit Charges Inpatient E&M: 34944 Subs Hosp L2
--- NOTE | 2021-05-03 07:23 | PCM.PN.HOSP ---
Objective Data Objective Data Vital Signs: Vital Signs Temp Pulse Resp BP Pulse Ox 97.7 F L 62 16 121/95 H 95 05/03/21 06:00 05/03/21 06:00 05/03/21 06:00 05/03/21 06:00 05/03/21 06:00 Oxygen Flow Rate (L/min) [At 8 REST with Oxygen] Oxygen Flow Rate (L/min) [ 8 AMBULATING with Oxygen #2] Oxygen Flow Rate (L/min) [ 6 AMBULATING with Oxygen #1] Oxygen Flow Rate (L/min) 12 Oxygen Delivery Method High Flow Weight: 110 kg Body Mass Index (BMI) 35.4 Intake & Output: Intake and Output for Last 24 Hours 05/01/21 05/02/21 05/03/21 23:59 23:59 23:59 Intake Total 850 / 850 Output Total 900 / 900 Balance -50 / -50 Lab / Micro Data Result Diagrams: 05/02/21 06:24 05/02/21 06:24 Labs: Laboratory Results - last 24 hr 05/02/21 11:28: POC Glucose 248 H 05/02/21 17:09: POC Glucose 334 H 05/02/21 21:41: POC Glucose 301 H 05/03/21 06:13: POC Glucose 150 H Micro: Microbiology 04/26/21 08:10 Sputum, Expectorated/Coughed Gram Stain - Final 04/26/21 08:10 Sputum, Expectorated/Coughed Respiratory Culture - Final 04/23/21 06:20 Urine, Random Legionella Antigen - Final 04/23/21 06:20 Urine, Random Streptococcus pneumoniae Antigen (M - Final 04/23/21 03:33 Mucosa - Nasopharyngeal Respiratory Panel (PCR) - Final Physical Exam Narrative GENERAL: cooperative, HEENT: Atraumatic; EYES; Anicteric, Normal Conjunctiva NECK; supple, normal thyroid, RESPIRATORY: Diminished to auscultation CARDIOVASCULAR: Regular S1 S2, GI: soft, normoactive bowel sounds, : No Renal angle tenderness; EXTREMITIES: No edema, no clubbing, MUSCULOSKELETAL: no muscle waisting NEURO: Awake; no lateralizing signs. SKIN: No Rash PSYCH; Flat affect Assessment & Plan Assessment/Plan (1) Pneumonia due to COVID-19 virus: (2) Hypoxia: PLAN: Patient is a 50-year-old gentleman unvaccinated against Covid presented with progressive shortness of breath diagnosed with acute hypoxic respiratory failure secondary to COVID-19 pneumonia 1. Acute hypoxic respiratory failure ?Secondary to COVID-19 pneumonia. Patient has completed a course of remdesivir however remains on Decadron and baricitinib. Patient has been seen in consultation by both pulmonary medicine as well as infectious disease; Patient still requiring high flow oxygen with Vapotherm. 05/01/2021; Patient seen, appears stable at rest, still on vapotherm with oxygen sat in the low 90s 05/02/2021; Patient seen has been weaned off Airvo and is currently on 10 L nasal cannula. Overall clinical condition continues to remain stable 2. Diabetes mellitus type II -patient's oral hypoglycemics held. Placed on long acting insulin, Accu-Cheks a.c. and at bedtime and covered with sliding scale insulin 3. Hypertension - Blood pressure controlled, home medications continued with dose adjustment as needed 4. Obesity with BMI of 34.2 ?Weight loss advised 5. DVT prophylaxis ?Lovenox
[2021-05-03 07:49] LABS: Absolute Lymphocyte Count 1.02 X10^3/uL (0.83-4.51); Absolute Neutrophil Count 7.8 X10^3/uL (2.0-7.7); Basophil# 0.03 X10^3/uL; Basophil% 0.3 % (0-1); Eosinophil# 0.15 X10^3/uL; Eosinophils% 1.5 % (0-5); Hematocrit 38.3 % (40-54); Hemoglobin 12.5 g/dL (13.0-16.5); Lymphocyte # 1.02 X10^3/ul (0.83-4.51); Lymphocyte % 10.1 % (19-41); Mean Corp Hgb Conc 32.6 g/dL (32-36); Mean Corpuscular Hgb 26.4 pg (27.0-32.0); Mean Platelet Vol. 10.1 fl (6.2-12.0); Monocyte# 0.91 X10^3/uL; NRBC Flagged by Analyzer 0 % (0-5); Neutrophil # 7.81 X10^3/uL (2.7-7.7); Neutrophil % 77.4 % (47-70); Platelet Count 363 K/mm3 (150-450); RBC Distribution Width CV 12.6 % (11.6-14.6); RBC Distribution Width SD 37.1 fl (35.1-43.9); Red Blood Count 4.73 M/mm3 (4.6-6.2); White Blood Count 10.1 K/mm3 (4.4-11.0)
[2021-05-03 08:08] LABS: ALB/GLOB Ratio 0.5 RATIO (0.9-2.4); AST(SGOT) 11 U/L (15-37); Alanine Aminotransfer ALT/SGPT 33 U/L (16-61); Albumin, Serum 2.4 g/dL (3.2-5.0); Alkaline Phosphatase 41 U/L (45-117); Anion Gap 7 (5-15); BUN 18 mg/dL (7-18); BUN/Creat Ratio 19.6 RATIO (10-20); Calcium,Total 8.7 mg/dL (8.5-10.1); Chloride 95 mmol/L (98-107); Creatinine, Serum 0.92 mg/dL (0.70-1.30); EST Glomerular Filtration Rate 92 mL/min (>60); Est Glom Filt Rate - Afr Amer 112 mL/min (>60); Estimated Creatinine Clearance 105.43 ml/min; Globulin 4.5 g/dL (2.2-4.2); Glucose 143 mg/dL (74-106); Potassium 3.9 mmol/L (3.5-5.1); Protein, Total 6.9 g/dL (6.4-8.2); Sodium Level 132 mmol/L (136-145)
[2021-05-03] MEDS: Pantoprazole Sodium 40 MG Tablet PO (09:57)
[2021-05-03] MEDS: Enoxaparin 30 MG/0.3 ML Syringe SC ×2 (09:57→22:14)
[2021-05-03] MEDS: dexAMETHasone 4 MG Tablet 6 MG PO (09:58)
[2021-05-03] MEDS: Ascorbic Acid 500 MG Tablet 1000 MG PO ×2 (09:58→22:11)
[2021-05-03] MEDS: guaiFENesin 1,200 MG Tablet 1200 MG PO ×2 (09:59→22:11)
--- NOTE | 2021-05-03 10:03 | PN.HOSP_ITS ---
Subjective Subjective Patient seen, remains relatively stable. However still requires high flow oxygen with 10 L. Plan is to continue to wean down his oxygen with possible plans for discharge in 1 to 2 days on home oxygen Objective Data Objective Data Vital Signs: Vital Signs Temp Pulse Resp BP Pulse Ox 98 F 89 18 90/55 L 92 05/03/21 09:55 05/03/21 09:55 05/03/21 09:55 05/03/21 09:55 05/03/21 09:55 Oxygen Flow Rate (L/min) [At 8 REST with Oxygen] Oxygen Flow Rate (L/min) [ 8 AMBULATING with Oxygen #2] Oxygen Flow Rate (L/min) [ 6 AMBULATING with Oxygen #1] Oxygen Flow Rate (L/min) 9 Oxygen Delivery Method High Flow Weight: 110 kg Body Mass Index (BMI) 35.4 Intake & Output: Intake and Output for Last 24 Hours 05/01/21 05/02/21 05/03/21 23:59 23:59 23:59 Intake Total 850 / 850 Output Total 900 / 900 Balance -50 / -50 Lab / Micro Data Result Diagrams: 05/03/21 07:15 05/03/21 07:15 Labs: Laboratory Results - last 24 hr 05/02/21 11:28: POC Glucose 248 H 05/02/21 17:09: POC Glucose 334 H 05/02/21 21:41: POC Glucose 301 H 05/03/21 06:13: POC Glucose 150 H 05/03/21 07:15: WBC 10.1, RBC 4.73, Hgb 12.5 L, Hct 38.3 L, MCV 81.0, MCH 26.4 L , MCHC 32.6, RDW Std Deviation 37.1, RDW Coeff of Julián 12.6, Plt Count 363, MPV 10.1, Immature Gran % (Auto) 1.700 H, Neut % (Auto) 77.4 H, Lymph % (Auto) 10.1 L, [place] % (Auto) 9.0, Eos % (Auto) 1.5, Baso % (Auto) 0.3, Absolute Neuts (auto) 7.8 H, Absolute Lymphs (auto) 1.02, Nucleated RBC % 0 05/03/21 07:15: Sodium 132 L, Potassium 3.9, Chloride 95 L, Carbon Dioxide 30.0, Anion Gap 7, BUN 18, Creatinine 0.92, Estim Creat Clear Calc 105.43, Est GFR (MDRD) Af Amer 112, Est GFR (MDRD) Non-Af 92, BUN/Creatinine Ratio 19.6, Glucose 143 H, Calcium 8.7, Total Bilirubin 0.40, AST 11 L, ALT 33, Alkaline Phosphatase 41 L, Total Protein 6.9, Albumin 2.4 L, Globulin 4.5 H, Albumin/Globulin Ratio 0.5 L Micro: Microbiology 04/26/21 08:10 Sputum, Expectorated/Coughed Gram Stain - Final 04/26/21 08:10 Sputum, Expectorated/Coughed Respiratory Culture - Final 04/23/21 06:20 Urine, Random Legionella Antigen - Final 04/23/21 06:20 Urine, Random Streptococcus pneumoniae Antigen (M - Final 04/23/21 03:33 Mucosa - Nasopharyngeal Respiratory Panel (PCR) - Final Physical Exam Narrative GENERAL: cooperative HEENT: Atraumatic; EYES; Anicteric, Normal Conjunctiva NECK; supple, normal thyroid, RESPIRATORY: Diminished to auscultation CARDIOVASCULAR: Regular S1 S2, GI: soft, normoactive bowel sounds, : No Renal angle tenderness; EXTREMITIES: No edema, no clubbing, MUSCULOSKELETAL: no muscle waisting NEURO: Awake; no lateralizing signs. SKIN: No Rash PSYCH; Flat affect Assessment & Plan Assessment/Plan (1) Pneumonia due to COVID-19 virus: (2) Hypoxia: PLAN: Patient is a 50-year-old gentleman unvaccinated against Covid presented with progressive shortness of breath diagnosed with acute hypoxic respiratory failure secondary to COVID-19 pneumonia 1. Acute hypoxic respiratory failure ?Secondary to COVID-19 pneumonia. Patient has completed a course of remdesivir however remains on Decadron and baricitinib. Patient has been seen in consultation by both pulmonary medicine as well as infectious disease; Patient still requiring high flow oxygen with Vapotherm. 05/01/2021; Patient seen, appears stable at rest, still on vapotherm with oxygen sat in the low 90s 05/02/2021; Patient seen has been weaned off Airvo and is currently on 10 L nasal cannula. Overall clinical condition continues to remain stable ?05/03/2021 Patient seen, remains relatively stable. However still requires high flow oxygen with 10 L. Plan is to continue to wean down his oxygen with possible plans for discharge in 1 to 2 days on home oxygen 2. Diabetes mellitus type II -patient's oral hypoglycemics held. Placed on long acting insulin, Accu-Cheks a.c. and at bedtime and covered with sliding scale insulin 3. Hypertension - Blood pressure controlled, home medications continued with dose adjustment as needed 4. Obesity with BMI of 34.2 ?Weight loss advised 5. DVT prophylaxis ?Lovenox Charges/Coding Visit Charges Inpatient E&M: 52926 Subs Hosp L2
[2021-05-03 11:40] LABS: Bedside Glucose 323 mg/dL (70-110)
[2021-05-03 21:05] LABS: Bedside Glucose 336 mg/dL (70-110)
[2021-05-03 22:35] LABS: Bedside Glucose 331 mg/dL (70-110)
[2021-05-04] VITALS (9 sets, daily range): BP systolic 101–124; BP diastolic 56–85; PULSE 75–90; RESP 14–23; TEMP 36.3–36.8; O2SAT 87–98
[2021-05-04] MEDS: Insulin Lispro 100 UNIT/ML INSULN.PEN SC ×2 (06:38→11:23)
[2021-05-04 06:46] LABS: Bedside Glucose 155 mg/dL (70-110)
[2021-05-04 06:56] LABS: Absolute Lymphocyte Count 1.06 X10^3/uL (0.83-4.51); Absolute Neutrophil Count 6.8 X10^3/uL (2.0-7.7); Basophil# 0.01 X10^3/uL; Basophil% 0.1 % (0-1); Eosinophil# 0.11 X10^3/uL; Eosinophils% 1.2 % (0-5); Hematocrit 37.8 % (40-54); Hemoglobin 12.7 g/dL (13.0-16.5); Lymphocyte # 1.06 X10^3/ul (0.83-4.51); Mean Corp Hgb Conc 33.6 g/dL (32-36); Mean Corpuscular Hgb 27.1 pg (27.0-32.0); Mean Corpuscular Volume 80.8 fL (80-94); Mean Platelet Vol. 10.1 fl (6.2-12.0); Monocyte# 0.75 X10^3/uL; Monocyte% 8.5 % (0-10); NRBC Flagged by Analyzer 0 % (0-5); Neutrophil # 6.79 X10^3/uL (2.7-7.7); Neutrophil % 76.6 % (47-70); Platelet Count 359 K/mm3 (150-450); RBC Distribution Width CV 12.8 % (11.6-14.6); RBC Distribution Width SD 37.4 fl (35.1-43.9); Red Blood Count 4.68 M/mm3 (4.6-6.2); White Blood Count 8.9 K/mm3 (4.4-11.0)
--- NOTE | 2021-05-04 07:10 | PN.CC_ITS ---
Assessment & Plan Assessment/Plan (1) Pneumonia due to COVID-19 virus: (2) Hypoxia: PLAN: RECOMMENDATIONS: 1. Continue baricitinib (05/08/2021). 2. Diuretics, as needed, to maintain euvolemic state. 3. Awake prone positioning was encouraged. 4. Continue to wean supplemental oxygen to maintain saturations at or above 90%. 5. Encourage incentive spirometer use and mobilize patient as tolerated. 6. Continue BiPAP with sleep. Will need outpatient evaluation for GABY. 7. Given improving oxygenation status, will sign off. Please call with any additional questions. IMPRESSIONS: 1. Acute hypoxic respiratory failure secondary to COVID-19 pneumonia Continue current supportive measures including Decadron and baricitinib. The patient has completed a treatment course of remdesivir. CTA showed no evidence for PE. Therefore, prophylactic dosing of Lovenox will be continued. Continue to wean supplemental oxygen to maintain saturations at or above 90%. Encourage incentive spirometer use and mobilize patient as tolerated. Diuretics can be utilized as needed to maintain euvolemic state. 2. Diabetes mellitus Continue sliding scale insulin coverage. 3. Unvaccinated status/hypertension/hyperlipidemia/obesity/suspected sleep apnea Complicates care, management, recovery and prognosis. Okay to continue with baseline medications. Recommend outpatient evaluation for sleep apnea. This note was generated with [employer] dictation software. It may contain incorrect words, spelling, and punctuation that were not noted in checking the note before signing. Subjective Subjective The patient was seen and examined at the bedside this morning. Events from the last 24 hours have been reviewed. The patient is currently afebrile, hemodynamically stable and maintaining appropriate oxygen saturations on 6 L/min high flow cannula. The patient is currently documented to be overall net -2.3 L for the hospitalization. He remains on twice daily Lovenox and baricitinib. Objective Data Objective Data The patient's most recent lab work, culture data and imaging studies have all been personally reviewed. Respiratory viral panel was negative. Strep and urine Legionella antigens were negative. Vital Signs: Vital Signs Temp Pulse Resp BP Pulse Ox 97.7 F L 75 18 124/85 H 97 05/04/21 06:29 05/04/21 06:29 05/04/21 06:29 05/04/21 06:29 05/04/21 06:29 Oxygen Flow Rate (L/min) [At 8 REST with Oxygen] Oxygen Flow Rate (L/min) [ 8 AMBULATING with Oxygen #2] Oxygen Flow Rate (L/min) [ 6 AMBULATING with Oxygen #1] Oxygen Flow Rate (L/min) 6 Oxygen Delivery Method Nasal Cannula Weight: 112 kg Body Mass Index (BMI) 35.4 Intake & Output: Intake and Output for Last 24 Hours 05/02/21 05/03/21 05/04/21 23:59 23:59 23:59 Intake Total 850 / 850 1100 / 1100 Output Total 900 / 900 200 / 200 1000 / 1000 Balance -50 / -50 900 / 900 -1000 / -1000 Lab / Micro Data Attestation: I reviewed the patient's lab results. Result Diagrams: 05/04/21 06:36 05/04/21 06:36 Labs: Laboratory Results - last 24 hr 05/03/21 07:15: WBC 10.1, RBC 4.73, Hgb 12.5 L, Hct 38.3 L, MCV 81.0, MCH 26.4 L , MCHC 32.6, RDW Std Deviation 37.1, RDW Coeff of Julián 12.6, Plt Count 363, MPV 10.1, Immature Gran % (Auto) 1.700 H, Neut % (Auto) 77.4 H, Lymph % (Auto) 10.1 L, [place] % (Auto) 9.0, Eos % (Auto) 1.5, Baso % (Auto) 0.3, Absolute Neuts (auto) 7.8 H, Absolute Lymphs (auto) 1.02, Nucleated RBC % 0 05/03/21 07:15: Sodium 132 L, Potassium 3.9, Chloride 95 L, Carbon Dioxide 30.0, Anion Gap 7, BUN 18, Creatinine 0.92, Estim Creat Clear Calc 105.43, Est GFR (MDRD) Af Amer 112, Est GFR (MDRD) Non-Af 92, BUN/Creatinine Ratio 19.6, Glucose 143 H, Calcium 8.7, Total Bilirubin 0.40, AST 11 L, ALT 33, Alkaline Phosphatase 41 L, Total Protein 6.9, Albumin 2.4 L, Globulin 4.5 H, Albumin/Globulin Ratio 0.5 L 05/03/21 11:35: POC Glucose 323 H 05/03/21 15:41: POC Glucose 336 H 05/03/21 22:10: POC Glucose 331 H 05/04/21 06:36: WBC 8.9, RBC 4.68, Hgb 12.7 L, Hct 37.8 L, MCV 80.8, MCH 27.1, MCHC 33.6, RDW Std Deviation 37.4, RDW Coeff of Julián 12.8, Plt Count 359, MPV 10.1, Immature Gran % (Auto) 1.600 H, Neut % (Auto) 76.6 H, Lymph % (Auto) 12.0 L, [place] % (Auto) 8.5, Eos % (Auto) 1.2, Baso % (Auto) 0.1, Absolute Neuts (auto) 6.8, Absolute Lymphs (auto) 1.06, Nucleated RBC % 0 05/04/21 06:37: POC Glucose 155 H Micro: Microbiology 04/26/21 08:10 Sputum, Expectorated/Coughed Gram Stain - Final 04/26/21 08:10 Sputum, Expectorated/Coughed Respiratory Culture - Final 04/23/21 06:20 Urine, Random Legionella Antigen - Final 04/23/21 06:20 Urine, Random Streptococcus pneumoniae Antigen (M - Final 04/23/21 03:33 Mucosa - Nasopharyngeal Respiratory Panel (PCR) - Final Physical Exam Const alert, oriented x3 and no apparent distress Constitutional Narrative: Sitting in bedside recliner. Nutritional Appearance: obese HEENT normocephalic, head/scalp atraumatic and moist oral mucous membranes Eyes PERRL, EOMs intact bilaterally and conjunctivae normal Neck supple General: trachea midline Chest inspection of chest normal Resp Auscultation: diminished lung sounds Cardio regular rate and regular rhythm GI normal to inspection, nondistended, normoactive bowel sounds Extremity no clubbing, cyanosis or edema Skin no rashes or lesions noted Neuro CN's II-XII intact bilaterally, moves all extremities and no focal motor deficits Psych cooperative and affect normal Charges/Coding Visit Charges Inpatient E&M: 02588 Subs Hosp L2
--- NOTE | 2021-05-04 07:27 | PCM.PN.HOSP ---
Subjective Subjective Patient seen appears to be clinically stable. Down to 5 L oxygen via nasal cannula. Plan is for patient to be assessed for possible discharge with a 6 minutes walk Objective Data Objective Data Vital Signs: Vital Signs Temp Pulse Resp BP Pulse Ox 97.7 F L 75 18 124/85 H 97 05/04/21 06:29 05/04/21 06:29 05/04/21 06:29 05/04/21 06:29 05/04/21 06:29 Oxygen Flow Rate (L/min) [At 8 REST with Oxygen] Oxygen Flow Rate (L/min) [ 8 AMBULATING with Oxygen #2] Oxygen Flow Rate (L/min) [ 6 AMBULATING with Oxygen #1] Oxygen Flow Rate (L/min) 6 Oxygen Delivery Method Nasal Cannula Weight: 112 kg Body Mass Index (BMI) 35.4 Intake & Output: Intake and Output for Last 24 Hours 05/02/21 05/03/21 05/04/21 23:59 23:59 23:59 Intake Total 850 / 850 1100 / 1100 Output Total 900 / 900 200 / 200 1000 / 1000 Balance -50 / -50 900 / 900 -1000 / -1000 Lab / Micro Data Result Diagrams: 05/04/21 06:36 05/04/21 06:36 Labs: Laboratory Results - last 24 hr 05/03/21 07:15: WBC 10.1, RBC 4.73, Hgb 12.5 L, Hct 38.3 L, MCV 81.0, MCH 26.4 L, MCHC 32.6, RDW Std Deviation 37.1, RDW Coeff of Julián 12.6, Plt Count 363, MPV 10.1, Immature Gran % (Auto) 1.700 H, Neut % (Auto) 77.4 H, Lymph % (Auto) 10.1 L, Walsh % (Auto) 9.0, Eos % (Auto) 1.5, Baso % (Auto) 0.3, Absolute Neuts (auto) 7.8 H, Absolute Lymphs (auto) 1.02, Nucleated RBC % 0 05/03/21 07:15: Sodium 132 L, Potassium 3.9, Chloride 95 L, Carbon Dioxide 30.0, Anion Gap 7, BUN 18, Creatinine 0.92, Estim Creat Clear Calc 105.43, Est GFR (MDRD) Af Amer 112, Est GFR (MDRD) Non-Af 92, BUN/Creatinine Ratio 19.6, Glucose 143 H, Calcium 8.7, Total Bilirubin 0.40, AST 11 L, ALT 33, Alkaline Phosphatase 41 L, Total Protein 6.9, Albumin 2.4 L, Globulin 4.5 H, Albumin/Globulin Ratio 0.5 L 05/03/21 11:35: POC Glucose 323 H 05/03/21 15:41: POC Glucose 336 H 05/03/21 22:10: POC Glucose 331 H 05/04/21 06:36: WBC 8.9, RBC 4.68, Hgb 12.7 L, Hct 37.8 L, MCV 80.8, MCH 27.1, MCHC 33.6, RDW Std Deviation 37.4, RDW Coeff of Julián 12.8, Plt Count 359, MPV 10.1, Immature Gran % (Auto) 1.600 H, Neut % (Auto) 76.6 H, Lymph % (Auto) 12.0 L, Walsh % (Auto) 8.5, Eos % (Auto) 1.2, Baso % (Auto) 0.1, Absolute Neuts (auto) 6.8, Absolute Lymphs (auto) 1.06, Nucleated RBC % 0 05/04/21 06:37: POC Glucose 155 H Micro: Microbiology 04/26/21 08:10 Sputum, Expectorated/Coughed Gram Stain - Final 04/26/21 08:10 Sputum, Expectorated/Coughed Respiratory Culture - Final 04/23/21 06:20 Urine, Random Legionella Antigen - Final 04/23/21 06:20 Urine, Random Streptococcus pneumoniae Antigen (M - Final 04/23/21 03:33 Mucosa - Nasopharyngeal Respiratory Panel (PCR) - Final Physical Exam Narrative GENERAL: cooperative HEENT: Atraumatic; EYES; Anicteric, Normal Conjunctiva NECK; supple, normal thyroid, RESPIRATORY: Diminished to auscultation CARDIOVASCULAR: Regular S1 S2, GI: soft, normoactive bowel sounds, : No Renal angle tenderness; EXTREMITIES: No edema, no clubbing, MUSCULOSKELETAL: no muscle waisting NEURO: Awake; no lateralizing signs. SKIN: No Rash PSYCH; Flat affect Assessment & Plan Assessment/Plan (1) Pneumonia due to COVID-19 virus: (2) Hypoxia: PLAN: Patient is a 50-year-old gentleman unvaccinated against Covid presented with progressive shortness of breath diagnosed with acute hypoxic respiratory failure secondary to COVID-19 pneumonia 1. Acute hypoxic respiratory failure ?Secondary to COVID-19 pneumonia. Patient has completed a course of remdesivir however remains on Decadron and baricitinib. Patient has been seen in consultation by both pulmonary medicine as well as infectious disease; Patient still requiring high flow oxygen with Vapotherm. 05/01/2021; Patient seen, appears stable at rest, still on vapotherm with oxygen sat in the low 90s 05/02/2021; Patient seen has been weaned off Airvo and is currently on 10 L nasal cannula. Overall clinical condition continues to remain stable ?05/03/2021 Patient seen, remains relatively stable. However still requires high flow oxygen with 10 L. Plan is to continue to wean down his oxygen with possible plans for discharge in 1 to 2 days on home oxygen -05/04/2021;Patient seen appears to be clinically stable. Down to 5 L oxygen via nasal cannula. Plan is for patient to be assessed for possible discharge with a 6 minutes walk 2. Diabetes mellitus type II -patient's oral hypoglycemics held. Placed on long acting insulin, Accu-Cheks a.c. and at bedtime and covered with sliding scale insulin 3. Hypertension - Blood pressure controlled, home medications continued with dose adjustment as needed 4. Obesity with BMI of 34.2 ?Weight loss advised 5. DVT prophylaxis ?Lovenox Charges/Coding Visit Charges Inpatient E&M: 15311 Subs Hosp L2
[2021-05-04 07:28] LABS: ALB/GLOB Ratio 0.5 RATIO (0.9-2.4); AST(SGOT) 11 U/L (15-37); Alanine Aminotransfer ALT/SGPT 36 U/L (16-61); Albumin, Serum 2.4 g/dL (3.2-5.0); Alkaline Phosphatase 42 U/L (45-117); Anion Gap 5 (5-15); BUN 20 mg/dL (7-18); BUN/Creat Ratio 22.7 RATIO (10-20); Calcium,Total 8.8 mg/dL (8.5-10.1); Chloride 100 mmol/L (98-107); Creatinine, Serum 0.88 mg/dL (0.70-1.30); EST Glomerular Filtration Rate 97 mL/min (>60); Est Glom Filt Rate - Afr Amer 117 mL/min (>60); Estimated Creatinine Clearance 110.23 ml/min; Globulin 4.4 g/dL (2.2-4.2); Glucose 173 mg/dL (74-106); Potassium 4.2 mmol/L (3.5-5.1); Protein, Total 6.8 g/dL (6.4-8.2); Sodium Level 135 mmol/L (136-145)
[2021-05-04] MEDS: Ascorbic Acid 500 MG Tablet 1000 MG PO (09:10)
[2021-05-04] MEDS: Pantoprazole Sodium 40 MG Tablet PO (09:11)
[2021-05-04] MEDS: Enoxaparin 30 MG/0.3 ML Syringe SC (09:11)
[2021-05-04] MEDS: guaiFENesin 1,200 MG Tablet 1200 MG PO (09:11)
--- NOTE | 2021-05-04 10:58 | DS.PCM_ITS ---
Providers Date of Admission: 04/23/21 Primary Care Physician: Dr. Marlys Gillette MD Consultations 04/25/21 07:50 Consult: Infectious Disease Routine Consulting Provider: Ilan Roth Reason for Consult: Baricitinib? EMERGENT Consult: No Notified: Yes Date Notified: 04/25/21 Time Notified: 08:10 Method of Notification: Text 04/25/21 10:25 Consult: Percussion Teacher / Pulmonary Medicine Routine Consulting Provider: Pulmonary Medicine raffaele Louise Reason for Consult: Increased oxygen requirements EMERGENT Consult: No Notified: Yes Date Notified: 04/25/21 Time Notified: 10:26 Method of Notification: looper operator Method of Consult:: In-Person Comments:: paged by looper operator Reason For Visit: COVID PNA, HYPOXIA Diagnosis Discharge Diagnosis (1) Pneumonia due to COVID-19 virus: Status: Acute Code(s): U07.1 - COVID-19; J12.82 - Pneumonia due to coronavirus disease 2019 (2) Hypoxia: Status: Acute Code(s): R09.02 - Hypoxemia Medications at Discharge Home Medications Trulicity 0.75 mg SUBCUT IKLLIAN 04/23/21 lisinopril 10 mg PO DAILY 04/23/21 lisinopril-hydrochlorothiazide 1 tab PO DAILY 04/23/21 metformin 500 mg PO DAILY 04/23/21 Hospital Course Summary of Care Provided Minutes Spent on Discharge: 45 Hospital Course: Patient is a 50-year-old gentleman unvaccinated against Covid presented with progressive shortness of breath diagnosed with acute hypoxic respiratory failure secondary to COVID-19 pneumonia 1. Acute hypoxic respiratory failure ?Secondary to COVID-19 pneumonia. Patient has completed a course of remdesivir however remains on Decadron and baricitinib. Patient has been seen in consultation by both pulmonary medicine as well as infectious disease; Patient still requiring high flow oxygen with Vapotherm. 05/01/2021; Patient seen, appears stable at rest, still on vapotherm with oxygen sat in the low 90s 05/02/2021; Patient seen has been weaned off Airvo and is currently on 10 L nasal cannula. Overall clinical condition continues to remain stable ?05/03/2021 Patient seen, remains relatively stable. However still requires high flow oxygen with 10 L. Plan is to continue to wean down his oxygen with possible plans for discharge in 1 to 2 days on home oxygen -05/04/2021;Patient seen appears to be clinically stable. Down to 5 L oxygen via nasal cannula. Plan is for patient to be assessed for possible discharge with a 6 minutes walk. Patient did qualify for home oxygen he will need portability since he is active both at home as well as in the community and he was instructed to current time for total of 21 days from the onset of his symptoms. 2. Diabetes mellitus type II -patient's oral hypoglycemics held. Placed on long acting insulin, Accu-Cheks a.c. and at bedtime and covered with sliding scale insulin 3. Hypertension - Blood pressure controlled, home medications continued with dose adjustment as needed 4. Obesity with BMI of 34.2 ?Weight loss advised 5. DVT prophylaxis ?Lovenox Physical Exam Narrative GENERAL: cooperative HEENT: Atraumatic; EYES; Anicteric, Normal Conjunctiva NECK; supple, normal thyroid, RESPIRATORY: Diminished to auscultation CARDIOVASCULAR: Regular S1 S2, GI: soft, normoactive bowel sounds, : No Renal angle tenderness; EXTREMITIES: No edema, no clubbing, MUSCULOSKELETAL: no muscle waisting NEURO: Awake; no lateralizing signs. SKIN: No Rash PSYCH; Flat affect Weight / BMI Weight Weight: 112 kg Body Mass Index (BMI) 35.4 ABG / Lab / Microbiology Data Result Diagrams: 05/04/21 06:36 05/04/21 06:36 Laboratory: Laboratory Results - last 24 hr 05/03/21 11:35: POC Glucose 323 H 05/03/21 15:41: POC Glucose 336 H 05/03/21 22:10: POC Glucose 331 H 05/04/21 06:36: WBC 8.9, RBC 4.68, Hgb 12.7 L, Hct 37.8 L, MCV 80.8, MCH 27.1, MCHC 33.6, RDW Std Deviation 37.4, RDW Coeff of Julián 12.8, Plt Count 359, MPV 10.1, Immature Gran % (Auto) 1.600 H, Neut % (Auto) 76.6 H, Lymph % (Auto) 12.0 L, Morehouse % (Auto) 8.5, Eos % (Auto) 1.2, Baso % (Auto) 0.1, Absolute Neuts (auto) 6.8, Absolute Lymphs (auto) 1.06, Nucleated RBC % 0 05/04/21 06:36: Sodium 135 L, Potassium 4.2, Chloride 100, Carbon Dioxide 30.0, Anion Gap 5, BUN 20 H, Creatinine 0.88, Estim Creat Clear Calc 110.23, Est GFR (MDRD) Af Amer 117, Est GFR (MDRD) Non-Af 97, BUN/Creatinine Ratio 22.7 H, Glucose 173 H, Calcium 8.8, Total Bilirubin 0.40, AST 11 L, ALT 36, Alkaline Phosphatase 42 L, Total Protein 6.8, Albumin 2.4 L, Globulin 4.4 H, Albumin/Globulin Ratio 0.5 L 05/04/21 06:37: POC Glucose 155 H Microbiology: Microbiology 04/26/21 08:10 Sputum, Expectorated/Coughed Gram Stain - Final 04/26/21 08:10 Sputum, Expectorated/Coughed Respiratory Culture - Final 04/23/21 06:20 Urine, Random Legionella Antigen - Final 04/23/21 06:20 Urine, Random Streptococcus pneumoniae Antigen (M - Final 04/23/21 03:33 Mucosa - Nasopharyngeal Respiratory Panel (PCR) - Final D/C Instructions Discharge Diet: No restrictions Discharge Activity: Return to Normal Activity Call your doctor if you observe: Fever of 101 or Higher, Shortness of breath, Fainting spells and Chest pain Meaningful Use Info Meaningful Use Diagnoses (Choose all that apply): None applicable Discharge Plan Admission Admit Date/Time: 04/23/21 00:12 Attending Provider: Yaya Youssef Primary Care Provider: Marlys Gillette Consulting Providers: Ilan Roth ; Ry Stanford ; Devaughn Olvera ; Morena Ortega FORMATION TESTING OPERATOR Discharge Orders/Prescriptions Prescriptions: Continued metformin 500 mg Tablet 500 mg PO DAILY RF: 0 lisinopril-hydrochlorothiazide 20-12.5 mg tablet 1 tab PO DAILY RF: 0 lisinopril 10 mg tablet 10 mg PO DAILY RF: 0 Trulicity 0.75 mg/0.5 mL pen injector 0.75 mg SUBCUT KILLIAN RF: 0 Referrals / Follow Up: Marlys Gillette MD [Primary Care Provider] - Within 2 Weeks Disposition Disposition (needs filled in before D/C Order can be placed): Home, Self Care Charges/Coding Visit Charges Inpatient E&M: 03098 Disch Hosp
--- NOTE | 2021-05-04 13:03 | CASEMGMT ---
Pt qualifies for home O2. Referral faxed to [facility] [place]. Spoke with pt, he is aware that he needs to call [facility] [place] so they can deliver concentrator. Pt to be dc'd at 3pm. TC to Angelia to make aware. Portable tank taken from [employer].
[2021-05-04 23:51] LABS: Bedside Glucose 216 mg/dL (70-110)
== END 2021-05-04 15:18 | disposition home or self-care (01) | DRG 177 ==
PROVIDERS: Family Medicine; Internal Medicine Infectious Disease; Admitting Provider Family Medicine; PCP Internal Medicine; Visit Provider Internal Medicine
DX: U07.1 COVID-19 (principal); J96.01 Acute respiratory failure with hypoxia; J12.82 Pneumonia due to coronavirus disease 2019; Z23 Encounter for immunization; Z28.3 Underimmunization status; E11.9 Type 2 diabetes mellitus without complications; I10 Essential (primary) hypertension; E78.5 Hyperlipidemia, unspecified; G47.31 Primary central sleep apnea; M54.50 Low back pain, unspecified; G89.29 Other chronic pain; E66.9 Obesity, unspecified; Z68.35 Body mass index [BMI] 35.0-35.9, adult; Z79.84 Long term (current) use of oral hypoglycemic drugs; Z79.899 Other long term (current) drug therapy
CPT/HCPCS: 36415; 71275; 80053; 80076; 82728; 82962; 83615; 83735; 83880; 84145; 85025; 85379; 86140; 87070; 87205; 87449; 87633; 94003; 94640; 94660; 94668; 99251; J7030; J7050; Q9967; 90686; A4216; G0463; J1940